=== PATIENT | female | born 1980 | race Caucasian/White ===

== ENCOUNTER 2023-11-02 15:14 | Emergency (ER) | payer BC, SELFPAY ==
[2023-11-02 15:16] VITALS: BP 135/89; PULSE 78; RESP 14; TEMP 35.7; O2SAT 98
[2023-11-02 15:23] VITALS: BMI 34.8
--- NOTE | 2023-11-02 15:30 | CT_ITS ---
EXAM: CT HEAD WITHOUT INTRAVENOUS CONTRAST CLINICAL INDICATION: dizziness TECHNIQUE: Multiple axial images were obtained of the head without intravenous contrast. This CT exam was performed using one or more of the following dose reduction techniques: automated exposure control, adjustment of the mA and/or kV according to patient size, and/or use of iterative reconstruction technique. COMPARISON: No relevant prior studies available. FINDINGS: BRAIN AND EXTRA-AXIAL SPACES: Normal. Normal brain attenuation. No intra- or extra-axial hemorrhage. No acute infarct. No intracranial mass or mass effect. There is preservation of the smith/white matter interface. Posterior fossa structures are unremarkable. Ventricles are appropriate for age. No hydrocephalus. Basal cisterns are patent. BONES/JOINTS: Normal calvarium. SINUSES: No acute sinusitis. MASTOID AIR CELLS: Normal. Clear. CT/Brain/Head without Contrast IMPRESSION: Normal CT brain without intravenous contrast. Electronically Signed: Gautam Villagran MD at 16:02 EST ,
--- NOTE | 2023-11-02 15:32 | EDS_ITS ---
HPI History of Present Illness Chief Complaint: Dizziness Informant: patient Onset/Context/Timing Onset: Today Context: Sudden Onset Timing: Continuous Current Severity: Mild Maximum Severity: Mild Narrative Narrative: 43-year-old female past medical history of Crohn's. States she had dizziness today starting around 1 PM. Room spinning. She has had prior history of dizziness never had it evaluated. Denies any recent fall or head trauma. No headaches. No recent illness such as nausea, vomiting or diarrhea. No fever. Denies any weakness to her upper or lower extremities. No numbness. When she does ambulate she is falling off to the right side. Prior similar symptoms: Yes Recent Illness/Hospitalization: No PFSH PFSH Medical History Acute Crohn's disease GERD (gastroesophageal reflux disease) Retinal arteriolar sclerosis Vertigo Home Medications hydrocodone-acetaminophen 5-325mg 5mg-325mg 1 tab PO Q6H PRN PRN Pain ##12 06/02/15 [Rx Last Taken Unknown] Omeprazole [Prilosec] 40 mg PO DAILY 07/25/15 [History Last Taken Unknown] dextroamphetamine-amphetamine 30 mg tablet (Adderall) 30 mg PO DAILY 07/25/15 [History Last Taken Unknown] duloxetine 30 mg capsule,delayed release 30 mg PO DAILY 07/25/15 [History Last Taken Unknown] etodolac 300 mg capsule 300 mg PO TIDCM ##30 07/25/15 [Rx Last Taken Unknown] penicillin V potassium 500 mg tablet 500 mg PO 4X/DAY #40 tabs 07/25/15 [Rx Last Taken Unknown] meclizine 25 mg chewable tablet (Antivert) 25 mg PO TID #14 tabs 11/02/23 [Rx Last Taken Unknown] Allergy/AdvReac Type Severity Reaction Status Date / Time latex AdvReac Unknown Verified 11/02/23 15:15 Social History Smoking Status: Current every day smoker tobacco type: cigarettes ROS ROS ED ROS Narrative Denies recent illness. Denies fever. Denies vomiting or diarrhea. Denies headaches. Review of Systems ROS Unobtainable: Denies due to encephalopathy Constitutional Constitutional ED: Denies chills or fever(s) Eyes Eyes: Denies blurry vision ENT ENT ED: Denies ear pain Cardiovascular Cardiovascular: Denies chest pain Respiratory/Chest Respiratory/Chest: Denies cough or dyspnea Gastrointestinal Gastrointestinal: Denies abdominal pain or constipation Genitourinary Genitourinary ED: Denies dysuria or hematuria Musculoskeletal Musculoskeletal: Denies arthralgias or back pain Integumentary Denies abscess or Abrasions Neurologic Neurologic: Denies headache(s), paresthesias or weakness Psychiatric Psychiatric: Denies anxiety or depression Endocrine Endocrinology: Denies cold intolerance Hematologic/Lymphatic Hematologic/Lymphatic: Reports none Allergic/Immunologic Allergic/Immunologic ED: Denies mouth swelling, tongue swelling or urticaria EXAM Physical Exam Narrative Exam Narrative: Well-appearing 43-year-old female. Vital signs stable afebrile. HEENT exam n ormal. Pupils round reactive light extra motions are intact. No facial droop. Normal speech. No signs of trauma. Neck nontender no lymphadenopathy. Lungs clear to auscultation bilaterally. Heart regular rhythm no murmur. Rate about 80. Chest wall and ribs nontender. Abdomen soft nontender. Moving all 4 extremities. 5 out of 5 quality engineer medical device strength. Dorsi plantarflexion intact. Neurologically she is awake and alert. Answering questions following commands. Normal speech. Again no facial droop. Fingertip to nose [id number] within normal limits. No drift. I did get the patient up and stand her and when she tried to ambulate she kept falling to the right side. Hallpike maneuvers in bed was positive. She became more dizzy. Const Vital Signs: 11/02/23 15:16 11/02/23 15:28 Temperature 96.3 F L Temperature Source Temporal Pulse Rate 78 Respiratory Rate 14 Respiratory Effort Normal Respiratory Pattern Normal Blood Pressure 135/89 H Blood Pressure Mean 104 Pulse Ox 98 Oxygen Delivery Method Room Air Positive well nourished and well developed; Negative for obese, cachectic, contractures or unkempt General Appearance ED: well developed and NAD; Negative for unkempt, cachectic, contractures, cyanotic, diaphoretic or pallor Nutritional Appearance: Negative for cachectic or obese HEENT Reports TM's clear and moist mucous membranes; Denies dry mucous membranes HEENT Narrative: TMs and canals normal bilaterally. No wax impaction. Negative for trauma or tenderness Tympanic Membrane ED: Yes TM's clear Mouth ED: No dry mucous membranes Mouth: No dry mucous membranes Eyes PERRL and EOMs intact bilaterally General Eye ED: Negative for pale conjunctiva or scleral icterus Neck no lymphadenopathy, supple and no JVD General: Negative for tenderness Lymph Lymphatic: Negative for other Chest Wall inspection of chest normal and palpation of chest normal Chest: Negative for other Resp normal respiratory effort and clear to auscultation bilaterally Effort and Inspection: Negative for retractions Auscultation: Negative for rales, rhonchi or wheezes Cardio regular rate, regular rhythm, S1 normal heart sound, S2 normal heart sound and no murmurs Palpation: Negative for palpable S3 or palpable S4 Rate: Negative for bradycardia or tachycardic Rhythm: Negative for abnormal rhythm GI normal to inspection, nondistended, normoactive bowel sounds, non-tender, non- distended and no masses; Negative for hepatosplenomegaly Inspection: abdominal distention Auscultation: normoactive bowel sounds Palpation: soft; Negative for tender, guarding, mass or rebound tenderness present Back/Spine no CVA tenderness General Back: Negative for CVA tenderness Cervical Spine: Negative for cervical spine tenderness Thoracic Spine / Upper Back: Negative for thoracic spinal tenderness or paraspinal muscle tenderness Lumbar Spine / Lower Back: Negative for lumbar spinal tenderness Extremity normal to inspection General Extremety ED: Negative for edema or tenderness General Extremity: Negative for edema Neuro oriented x3 and CN's II-XII intact bilaterally Sensorium / Orientation: alert; Negative for orientation impaired, lethargic or stuporous Sensory Exam: No sensory level loss detected Motor Exam: strength 5/5 throughout; Negative for general weakness or strength abnormal Psych mental status grossly normal Appearance: Negative for unkempt Attitude: No agitated Mood & Affect: Negative for depressed, anxious or tearful Skin no rashes or lesions noted and no wounds General Skin Exam: Negative for jaundice or pallor Lesions: No lesion noted Rashes: No rashes noted Trauma: Negative for abrasion Wounds: Negative for wounds noted MDM MDM MDM Narrative Medical decision making narrative: 43-year-old female may or may not have vertigo. Has positive Hallpike. Treated with meclizine. She did not want Ativan. Screening labs also being obtained in the CAT scan of her head. Repeat exam patient doing better at 4:45 PM. Her symptoms are improving with the Antivert. She will be discharged home with prescription for Antivert. Follow-up with her physician if not improving or return if worse. History & Record Review Discussion w/independent historian: Patient Additional record(s) reviewed:: No prior records Lab Data Attestation: I reviewed the patient's lab results. Lab results narrative: CBC shows normal white count of 7.6. H&H 12.5 and 36. Platelets 321. CAT scan of the brain without contrast shows no acute abnormality. Chemistries show potassium 3.4 gap 4 normal BUN of 8 creatinine 0.7. glucose 98. Labs: Laboratory Results - last 24 hr 11/02/23 15:40 WBC 7.6 RBC 4.20 Hgb 12.5 Hct 36.2 L MCV 86.2 MCH 29.8 MCHC 34.5 RDW Std Deviation 43.4 RDW Coeff of Ana 13.8 Plt Count 321 MPV 9.6 Immature Gran % (Auto) 0.400 Neut % (Auto) 47.5 Lymph % (Auto) 41.1 H Garrard % (Auto) 8.0 Eos % (Auto) 2.6 Baso % (Auto) 0.4 Absolute Neuts (auto) 3.6 Absolute Lymphs (auto) 3.13 Nucleated RBC % 0 Sodium 139 Potassium 3.4 L Chloride 112 H Carbon Dioxide 23.0 Anion Gap 4 L BUN 8 Creatinine 0.74 Estim Creat Clear Calc 108.91 Est GFR (MDRD) Af Amer 110 Est GFR (MDRD) Non-Af 91 BUN/Creatinine Ratio 10.7 Glucose 98 Calcium 9.3 Radiography Diagnostic Testing: Clinical Impression(s) from Imaging Studies Brain CT 11/02/23 15:30 IMPRESSION: Normal CT brain without intravenous contrast. Electronically Signed: Gautam Villagran MD at 16:02 EST , Discharge Plan Triage Chief Complaint: Dizziness ED Provider: Armin Ortiz Dx/Rx/DC Orders Clinical Impression: Vertigo Instructions: ED Vertigo, Unspecified Prescriptions: New meclizine [Antivert] 25 mg tablet,chewable 25 mg PO TID Qty: 14 0RF No Action hydrocodone-acetaminophen 1 TABLET tablet 1 tab PO Q6H PRN PRN (Reason: Pain) Qty: 12 0RF dextroamphetamine-amphetamine [Adderall] 30 MG tablet 30 mg PO DAILY duloxetine 30 MG capsule 30 mg PO DAILY Omeprazole [Prilosec] 40 MG capsule 40 mg PO DAILY etodolac 300 MG capsule 300 mg PO TIDCM Qty: 30 0RF Rx Instructions: with food penicillin V potassium 500 MG tablet 500 mg PO 4X/DAY Qty: 40 0RF Primary Care Provider: Care Physician,No Primary Referrals: Fernando Navarro MD [Med Staff - [employer]] - 3-5 Days if not improving Care Physician,No Primary [Primary Care Provider] - Activity Restrictions/Additional Instructions: Antivert as needed for your symptoms dizziness. Plenty of fluids and rest. Follow-up with a local primary care physician if not improving. Return if worse. Symptoms should progressively start getting better over the next several days and resolve if not get reevaluated. Your labs and CAT scan today were unremarkable. Disposition Disposition: Home, Self Care
--- OUTSIDE RECORDS SUMMARY | 2023-11-02 15:37 | XMS RPT_ITS | CCD ---
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 Name Role Phone DEMETRA ARCEO Unavailable Unavailable ROBER CHAVEZ Unavailable Unavailable HEINLE, CROCKER Unavailable Unavailable RUDI, PATTIE A Unavailable Unavailable Mariana Christiansen Unavailable Unavailable PROVIDER, UNKNOWN Unavailable Unavailable Mcclain, Pattie Unavailable Unavailable DERANEK, JAKE Unavailable Unavailable PROVIDER, UNKNOWN Unavailable Unavailable Mcclain, Pattie Unavailable Unavailable Mcclain DO, Pattie A Primary Care Provider Mcclain DO, Pattie A Primary Care Provider [phone] Mcclain DO, Pattie A Primary Care Provider [phone] Mcclain DO, Pattie A Primary Care Provider [phone] CLOUD, PATTIE A Primary Care Unavailable WORTHAMS, DAYANA Attending Unavailable CLOUD, PATTIE A Primary Care Unavailable WORTHAMS, DAYANA Attending Unavailable CLOUD, PATTIE A Primary Care Unavailable WORTHAMS, DAYANA Attending Unavailable WORTHAMS, DAYANA Attending Unavailable CLOUD, PATTIE A Primary Care Unavailable WORTHAMS, DAYANA Attending Unavailable NATALIE, SIMONA Referring Unavailable CLOUD, PATTIE A Primary Care Unavailable GISELLA CARROLL Referring Unavailable NATALIE, SIMONA Attending Unavailable CLOUD, PATTIE A Primary Care Unavailable CLOUD, PATTIE A Primary Care Unavailable CLOUD, PATTIE A Attending Unavailable CLOUD, PATTIE A Primary Care Unavailable CLOUD, PATTIE A Primary Care Unavailable CLOUD, PATTIE A Attending Unavailable CLOUD, PATTIE A Primary Care Unavailable CLOUD, PATTIE A Attending Unavailable CLOUD, PATTIE A Referring Unavailable CLOUD, PATTIE A Primary Care Unavailable CLOUD, PATTIE A Primary Care Unavailable CLOUD, PATTIE A Attending Unavailable CLOUD, PATTIE A Primary Care Unavailable CLOUD, PATTIE A Attending Unavailable CLOUD, PATTIE Referring Unavailable CLOUD, PATTIE Primary Care Unavailable CLOUD, PATTIE Referring Unavailable CLOUD, PATTIE Primary Care Unavailable Allergies Allergy Classification Reported Allergen(s) Allergy Type Date of Onset Reaction(s) Facility (20 sources) Latex; Translations: [LATEX] Drug Intolerance 0 Intolerance [facility] Medications Current Medications Medication Drug Class(es) Dates Sig (Normalized) Sig (Original) amphetamine aspartate 7.5 mg / amphetamine sulfate 7.5 mg / dextroamphetamine saccharate 7.5 mg / dextroamphetamine sulfate 7.5 mg oral tablet (20 sources) Central Nervous System Stimulant Start: 10-22-2022 End: 12-21-2022 take 1 tablet by mouth twice daily Amphetamine-Dextro amphetamine (ADDERALL) 30 mg tablet Indications: Attention deficit disorder, unspecified hyperactivity presence Take 1 tablet by mouth twice daily for 30 days. Do not start before November 21, 2022. 60 tablet 0 11/21/2022 12/21/2022 Active Completed/Discontinued Medications Medication Drug Class(es) Dates Sig (Normalized) Sig (Original) [id number] 200 actuat albuterol 0.09 mg/actuat metered dose inhaler (20 sources) beta2-Adrenergic Agonist Start: 03-07-2018 take 2 puff(s) by inhalation every six hours as needed albuterol HFA (PROAIR HFA) 90 mcg/actuation inhaler Inhale 2 Puffs as instructed every 6 hours as needed. 3 Inhaler 3 03/07/2018 Active Problems Active Problems Problem Classification Problem Date Documented Date Episodic/Chronic Anal and rectal conditions (2 sources) Anorectal pain; Translations: [Other specified diseases of anus and rectum] Onset: 07-19-2023 07-19-2023 Episodic Anxiety disorders (20 sources) Mixed anxiety and depressive disorder; Translations: [Other specified anxiety disorders] Onset: 12-22-2021 Chronic Attention-deficit, conduct, and disruptive behavior disorders (4 sources) Attention deficit hyperactivity disorder; Translations: [Attention-deficit hyperactivity disorder, unspecified type] Chronic Disorders usually diagnosed in infancy, childhood, or adolescence (20 sources) Attention deficit hyperactivity disorder, predominantly inattentive type; Translations: [Other specified behavioral and emotional disorders with onset usually occurring in childhood and adolescence] Onset: 06-10-2010 06-10-2010 Chronic Esophageal disorders (20 sources) Gastroesophageal reflux disease; Translations: [Gastro-esophageal reflux disease without esophagitis] Onset: 01-23-2012 01-23-2012 Chronic External Injury - Fall (2 sources) Fall on same level from slipping, tripping and stumbling without subsequent striking against object, initial encounter; Translations: [Fall same lev from slip/trip w/o strike against object, init] Onset: 03-20-2017 Genitourinary symptoms and ill-defined conditions (1 source) Delay when starting to pass urine; Translations: [Hesitancy of micturition] Episodic Immunizations and screening for infectious disease (3 sources) Patient encounter status; Translations: [Encounter for immunization] Episodic Inflammation; infection of eye (except that caused by tuberculosis or sexually transmitteddisease) (1 source) Allergic conjunctivitis of bilateral eyes; Translations: [Acute atopic conjunctivitis, bilateral] Episodic Mood disorders (2 sources) Recurrent major depressive episodes, moderate ; Translations: [Major depressive disorder, recurrent, moderate] Chronic Other connective tissue disease (1 source) Plantar fasciitis; Translations: [Plantar fascial fibromatosis] Episodic Other female genital disorders (1 source) Premenstrual tension syndrome; Translations: [Premenstrual tension syndrome] Chronic Other inflammatory condition of skin (1 source) Pruritus, unspecified; Translations: [Unspecified pruritic disorder] 05-30-2023 Episodic Other nutritional; endocrine; and metabolic disorders (1 source) Obese class II; Translations: [Obesity, unspecified] 08-02-2023 Chronic Other nutritional; endocrine; and metabolic disorders (1 source) Obesity, unspecified; Translations: [Obesity, Class II, BMI 35-39.9] Onset: 08-05-2023 Chronic Other nutritional; endocrine; and metabolic disorders (2 sources) Polyphagia; Translations: [Polyphagia] Episodic Other screening for suspected conditions (not mental disorders or infectious disease) (3 sources) Encounter for screening mammogram for malignant neoplasm of breast; Translations: [Encounter for screening for diabetes mellitus] Onset: 11-08-2022 Episodic Other skin disorders (1 source) Inflamed seborrheic keratosis; Translations: [Inflamed seborrheic keratosis] 05-30-2023 Episodic Other skin disorders (1 source) Seborrheic keratosis; Translations: [Other seborrheic keratosis] 05-30-2023 Episodic Other skin disorders (1 source) Multiple skin tags; Translations: [Other hypertrophic disorders of the skin] 05-30-2023 Episodic Other upper respiratory disease (2 sources) Seasonal allergic rhinitis; Translations: [Other seasonal allergic rhinitis] Chronic Regional enteritis and ulcerative colitis (20 sources) Crohn's disease; Translations: [Crohn's disease, unspecified, without complications] Onset: 06-10-2010 06-10-2010 Chronic Residual codes; unclassified (4 sources) Postoperative state; Translations: [Other specified postprocedural states] 07-01-2023 Episodic Residual codes; unclassified (1 source) Other specified postprocedural states; Translations: [Postoperative state] Onset: 07-19-2023 Episodic Retinal detachments; defects; vascular occlusion; and retinopathy (1 source) Schisis of right retina; Translations: [Unspecified retinoschisis, right eye] Chronic Substance-related disorders (2 sources) Nicotine dependence, unspecified, uncomplicated; Translations: [Nicotine dependence, unspecified, uncomplicated] Onset: 04-14-2017 Chronic Unclassified (1 source) OPENED IN ERROR 07-11-2023 Viral infection (8 sources) Anal warts; Translations: [Anogenital (venereal) warts] Onset: 07-01-2023 04-05-2023 Episodic Past or Other Problems Problem Classification Problem Date Documented Da te Episodic/Chronic Allergic reactions (2 sources) Latex allergy status; Translations: [Latex allergy status] Onset: 04-14-2017 Episodic Contraceptive and procreative management (2 sources) Tubal ligation status; Translations: [Tubal ligation status] Onset: 04-14-2017 Episodic Mood disorders (1 source) Emotional lability; Translations: [Mood swings] Onset: 01-25-2023 Episodic Other connective tissue disease (2 sources) Other muscle spasm; Translations: [Other muscle spasm] Onset: 04-14-2017 Episodic Other non-traumatic joint disorders (4 sources) Pain in unspecified shoulder; Translations: [Pain in left shoulder] Onset: 04-14-2017 Episodic Residual codes; unclassified (20 sources) Tobacco use and exposure - finding; Translations: [Tobacco use] Onset: 04-03-2012 04-03-2012 Episodic Residual codes; unclassified (1 source) Flushing; Translations: [Hot flashes] Onset: 01-25-2023 Episodic Spondylosis; intervertebral disc disorders; other back problems (20 sources) Dorsalgia, unspecified; Translations: [Backache] Onset: 06-26-2011 06-26-2011 Episodic Sprains and strains (2 sources) Strain of muscle, fascia and tendon at neck level, initial encounter; Translations: [Strain of muscle, fascia and tendon at neck level, init] Onset: 03-20-2017 Episodic Superficial injury; contusion (4 sources) Contusion of left upper arm, initial encounter; Translations: [Contusion of left shoulder, initial encounter] Onset: 03-20-2017 Episodic Unclassified (2 sources) Acquired absence of other organs; Translations: [Acquired absence of other organs] Onset: 04-14-2017 Episodic Results Test Name Value Interpretation Reference Range Facil ity Vital Signs Date Time Vital Sign Value Performing Clinician Eulalia metzger 07-01-2023 09:09-0400 Body height 165.1 cm Dayana Chan APRN.CNP Work Phone: [facility] 07-01-2023 09:09-0400 Body temperature 97.59 [degF] Dayana Chan APRN.CNP Work Phone: [facility] 07-01-2023 09:09-0400 Body weight 108.41 kg Dayana Chan APRN.CNP Work Phone: [facility] 07-01-2023 09:09-0400 Diastolic blood pressure 84 mm[Hg] Dayana Chan APRN.CALL CENTER RN Work Phone: [facility] 07-01-2023 09:09-0400 Heart rate 81 /min Dayana Chan APRN.CALL CENTER RN Work Phone: [facility] 07-01-2023 09:09-0400 Respiratory rate 18 /min Dayana Chan APRN.CALL CENTER RN Work Phone: [facility] 07-01-2023 09:09-0400 SaO2% (BldA) [Mass fraction] 99 % Dayana Chan APRN.CNP Work Phone: [facility] 07-01-2023 09:09-0400 Systolic blood pressure 151 mm[Hg] Dayana Chan APRN.CALL CENTER RN Work Phone: [facility] 01-31-2023 10:03-0400 Body weight 104.55 kg Pattie Mcclain DO Work Phone: [facility] 01-31-2023 10:03-0400 Diastolic blood pressure 80 mm[Hg] Pattie Mcclain DO Work Phone: [facility] 01-31-2023 10:03-0400 Heart rate 74 /min Pattie Mcclain DO Work Phone: [facility] 01-31-2023 10:03-0400 Respiratory rate 16 /min Pattie Mcclain DO Work Phone: [facility] 01-31-2023 10:03-0400 Systolic blood pressure 126 mm[Hg] Pattie Mcclain DO Work Phone: [facility] 08-21-2022 08:38-0500 Body weight 101.47 kg Pattie Mcclain DO Work Phone: [facility] 08-21-2022 08:38-0500 Diastolic blood pressure 88 mm[Hg] Pattie Mcclain DO Work Phone: [facility] 08-21-2022 08:38-0500 Heart rate 62 /min Pattie Mcclain DO Work Phone: [facility] 08-21-2022 08:38-0500 Respiratory rate 16 /min Pattie Mcclain DO Work Phone: [facility] 08-21-2022 08:38-0500 Systolic blood pressure 131 mm[Hg] Pattie Mcclain DO Work Phone: [facility] Encounters Encounter Date Encounter Type Care Provider Facility Start: 10-29-2023 ambulatory Pattie A Mcclain D O Work Phone: [facility] Procedures Date Procedure Procedure Detail Performing Clinician Start: 02-21-2023 Computerized ophthal vanessa imaging retina Justen Summers MD Work Phone: Start: 02-21-2023 End: 02-21-2023 Computerized ophthalmic imaging retina Justen Summers MD Work Phone: Start: 11-08-2022 Mammography Mammograph y Coordinator Start: 08-21-2022 INFLUENZA VACCINE QUADRIVALENT 6 MO - 64 YRS IM Pattie A Mcclain DO Work Phone: Start: 06-27-2021 Mammography Orville GONZALEZ-Denise Work Phone: Start: 12-30-2020 Adult depression scr eening assessment Orville GONZALEZ-C Work Phone: Plan of Treatment Date Care Activity Detail Author Start: 03-24-2029 Urine microalbumin profile [facility] Start: 03-24-2024 HPV TESTING HPV TESTING [facility] Start: 03-24-2024 PAP TESTING PAP TESTING [facility] Start: 03-24-2024 Screening for malign ant neoplasm of cervix [facility] Start: 11-09-2023 Mammography [facility] Start: 11-09-2023 Screening for malign ant neoplasm of breast Mammogram Screening [facility] Start: 08-21-2023 COVID-19 VACCINE (3 - Booster for Pfizer series) COVID-19 VACCINE (3 - Booster for Pfizer series) [facility] Immunizations Immunization Date Immunization Notes Care Provider Fa cili 07-02-2023 Human Papillomavirus 9-valent vaccine Pattie Mcclain DO Work Phone: [facility] Work Phone: 07-02-2023 influenza, injectabl e, quadrivalent, preservative free Pattie Mcclain DO Work Phone: [facility] Work Phone: 08-21-2022 influenza, injectabl e, quadrivalent, contains preservative Pattie Mcclain DO Work Phone: [facility] 08-21-2022 influenza virus vacc ine, unspecified formulation Simona Espinosa MD Work Phone: [facility] 08-02-2021 influenza, injectabl e, quadrivalent, contains preservative Orville GONZALEZ-Denise Work Phone: [facility] 01-12-2021 COVID-19 vaccine, ag e 12+ yr ([employer] - PURPLE TOP) Orville GONZALEZ-Denise Work Phone: [facility] 12-15-2020 COVID-19 vaccine, ag e 12+ yr ([employer] - PURPLE TOP) Coulton Delphine PA-C Work Phone: [facility] 06-09-2020 influenza, injectabl e, quadrivalent, contains preservative Coulton Delphine PA-C Work Phone: [facility] 08-15-2019 influenza, injectabl e, quadrivalent, contains preservative Coulton Delphine PA-C Work Phone: [facility] 03-24-2019 pneumococcal polysaccharide vaccine, 23 valent Coulton Delphine PA-C Work Phone: [facility] 03-24-2019 tetanus toxoid, redu polly diphtheria toxoid, and acellular pertussis vaccine, adsorbed Coulton Delphine PA-C Work Phone: [facility] 07-01-2018 influenza, injectabl e, quadrivalent, contains preservative Coulton Delphine PA-C Work Phone: [facility] 09-20-2017 influenza, injectabl e, quadrivalent, contains preservative Coulton Delphine PA-C Work Phone: [facility] 06-19-2016 influenza, injectabl e, quadrivalent, contains preservative Coulton Delphine PA-C Work Phone: [facility] 07-22-2010 influenza virus vacc ine, unspecified formulation Coulton Delphine PA-C Work Phone: [facility] Payers Date Payer Category Payer Unknown [id number] 2021 Unknown MMO MMO [employer] [id number] 2021-Present [phone] [address] [place] [address] O [id number] 2021 Unknown [id number] 2020 Unknown 2017 Self-pay Social History Date Type Detail Facility Start: 10-18-2018 End: 08-21-2022 Tobacco smoking status NHIS Smokes tobacco daily [facility] History of tobacco use Cigarette Smoker C [facility] Start: 08-02-2021 End: 07-01-2023 Alcohol intake Ex-drinker (finding) [facility] Start: 06-09-2020 End: 08-21-2022 History SDOH Alcohol Frequency 1 [facility] Start: 12-02-2020 History SDOH Alcohol Comment <1 time per year [facility] Start: 06-09-2020 End: 08-21-2022 History SDOH Social Connections Phone 3 [facility] Start: 06-09-2020 End: 08-21-2022 History SDOH Social Connections Membership 2 [facility] Start: 06-09-2020 History SDOH Physica l Activity DPW 7 [facility] Start: 06-09-2020 Education 21 [facility] Start: 1980 Sex Assigned At Female [facility] Start: 10-18-2018 End: 01-31-2023 Cigarettes smoked current (pack per day) - Reported 0.5 [facility] Start: 10-18-2018 End: 08-21-2022 Tobacco use and exposure Smokeless tobacco non-user [facility] Start: 08-21-2022 History SDOH Alcohol Std Drinks 0 [facility] Start: 08-21-2022 History SDOH Financial 4 [facility] Start: 08-21-2022 End: 01-31-2023 Social connection and isolation panel [facility] Do you belong to any clubs or organizations such as yazidi groups, unions, fraternal or athletic groups, or school groups? No [facility] Are you now , , , , never or living with a partner? [facility] How often to you hav e a drink containing alcohol? Never [facility] How many standard dr inks containing alcohol do you have on a typical day? Patient does not drink [facility] How hard is it for y ou to pay for the very basics like food, housing, medical care, and heating Not very hard [facility] Do you feel stress - tense, restless, nervous, or anxious, or unable to sleep at night because your mind is troubled all the time - these days [OSQ] To some extent [facility] (I/We) worried wheth er (my/our) food would run out before (I/we) got money to buy more. Never true [facility] Start: 05-12-2020 Gender identity Identifies as female gender (finding) [facility] Start: 05-12-2020 Sexual orientation Heterosexual (gideon calvert) [facility] Clinical Notes 06-19-2016 to 10-29-2023 Telephone Encounter - Pattie Hayes DO - 10/29/2023 4:41 PM ESTTelephone Encounter - Lizbeth Thompson Ma - 10/29/2023 10:27 AM ESTTelephone Encounter - Pattie Hayes DO - 10/23/2023 4:20 PM EST Note Date & Type Note Facility 10-29-2023 Miscellaneous Notes The following approved medication requests have been transmitted electronically. Requested Prescriptions Signed Prescriptions Disp Refills tirzepatide (MOUNJARO) 7.5 mg/0.5 mL pen injector 2 mL 0 Sig: Inject 7.5 mg subcutaneously one time a week. 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 Called [facility] Spoke with pharmacist RX is stock Please resend RX one more time documented in this encounter [facility] 10-23-2023 Miscellaneous Notes The following approved medication requests have been transmitted electronically. Requested Prescriptions Signed Prescriptions Disp Refills tirzepatide (MOUNJARO) 10 mg/0.5 mL pen injector 2 mL 0 Sig: Inject 10 mg subcutaneously one time a week. Authorizing Provider: PATTIE HAYES DO 10:06 AM Called patient. Informed of below message. Started taking stool softener. States has some indigestion but not always. Was waking up in middle of night with indigestion, but this has resolved. Only has indigestion right when she wakes up, but then she is good throughout the day. States having regular bowel movements, and that the stool softener helped her symptoms. Informed patient Dr. Hayes is on vacation until after the weekend, that the message would be sent to her and the covering team, but might not get dealt with until after the weekend. Ronnie Burrell RN Please call patient. I am hesitant to increase dosage with her increase in GERD symptoms. Pattie Hayes DO Patient has been identified by name and date of : Yes Patient phones requesting refills as follows: Requested Prescriptions Pending Prescriptions Disp Refills tirzepatide (MOUNJARO) 10 mg/0.5 mL pen injector 2 mL 1 Sig: Inject 10 mg subcutaneously one time a week. Last appointment: 08/02/2023 Next scheduled appointment: Appointments for Next 60 Days Date Time Provider Location Dept Phone 11/19/2023 2:20 PM PATTIE HAYES [facility] [phone] RX INSTRUCTIONS: Respond to pharmacy only and close encounter Lizbeth Thompson Ma documented in this encounter [facility] 08-02-2023 Note HNO ID: [id number] Author: Pattie Hayes DO Service: ? Author Type: Physician Type: Progress Notes Filed: 08/02/2023 3:19 PM Note Text: This visit was conducted as a virtual visit. Pt is currently at work. I have communicated my name and active licensure. The patient's identity and physical location were verified at the time of this visit. 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 CC: Weight HPI: 43 year old female presents for weight I last saw patient in April Feels omeprazole isn't working Taking omeprazole 40 mg BID Having indigestion Struggling with eating in evening Wondering about going on mounjaro On lisdexamfetamine for binge eating and ADHD Insurance made her take generic instead of name brand Medication still helping with focus Doesn't feel it is helping with appetite suppression as much Eats dinner around 5 pm Snacking right before bed States she can't get it off her mind Has gained a lot of weight over past few years Last CMP was 12/2022 Pt states insurance will cover drug if she has obesity Doesn't need to have diabetes Mom is on mounjaro and doing well No history of pancreatitis No family history of thyroid cancer or endocrine cancers Objective: General appearance:Obese, well appearing, alert, in no acute distress, and well-hydrated, well nourished ASSESSMENT/PLAN: 1. Obesity, Class II, BMI 35-39.9 - ICD9: 278.00, ICD10: E66.9 (primary diagnosis) - discussed mounjaro. Pt will message in 3 weeks with how tolerating and will increase dose if tolerating - TIRZEPATIDE 2.5 MG/0.5 ML SUBCUTANEOUS PEN INJECTOR - COMP METABOLIC PANEL - HGB A1C - LIPID PANEL BASIC 2. Screening for diabetes mellitus - ICD9: V77.1, ICD10: Z13.1 - COMP METABOLIC PANEL - HGB A1C 3. Screening cholesterol level - ICD9: V77.91, ICD10: Z13.220 - LIPID PANEL BASIC 4. Gastroesophageal reflux disease, unspecified whether esophagitis present - ICD9: 530.81, ICD10: K21.9 - on omeprazole - pt aware weight loss would be helpful Follow up in 3 months Pattie Hayes DO [facility] 08-02-2023 History of Presen t illness Narrative This visit was conducted as a virtual visit. Pt is currently at work. I have communicated my name and active licensure. The patient's identity and physical location were verified at the time of this visit. 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 CC: Weight HPI: 43 year old female presents for weight I last saw patient in April Feels omeprazole isn't working Taking omeprazole 40 mg BID Having indigestion Struggling with eating in evening Wondering about going on mounjaro On lisdexamfetamine for binge eating and ADHD Insurance made her take generic instead of name brand Medication still helping with focus Doesn't feel it is helping with appetite suppression as much Eats dinner around 5 pm Snacking right before bed States she can't get it off her mind Has gained a lot of weight over past few years Last CMP was 12/2022 Pt states insurance will cover drug if she has obesity Doesn't need to have diabetes Mom is on mounjaro and doing well No history of pancreatitis No family history of thyroid cancer or endocrine cancers Objective: General appearance:Obese, well appearing, alert, in no acute distress, and well-hydrated, well nourished ASSESSMENT/PLAN: 1. Obesity, Class II, BMI 35-39.9 - ICD9: 278.00, ICD10: E66.9 (primary diagnosis) - discussed mounjaro. Pt will message in 3 weeks with how tolerating and will increase dose if tolerating - TIRZEPATIDE 2.5 MG/0.5 ML SUBCUTANEOUS PEN INJECTOR - COMP METABOLIC PANEL - HGB A1C - LIPID PANEL BASIC 2. Screening for diabetes mellitus - ICD9: V77.1, ICD10: Z13.1 - COMP METABOLIC PANEL - HGB A1C 3. Screening cholesterol level - ICD9: V77.91, ICD10: Z13.220 - LIPID PANEL BASIC 4. Gastroesophageal reflux disease, unspecified whether esophagitis present - ICD9: 530.81, ICD10: K21.9 - on omeprazole - pt aware weight loss would be helpful Follow up in 3 months Pattie Hayes DO documented in this encounter [facility] 07-29-2023 Miscellaneous Notes Patient has been identified by name and date of : Yes Patient phones requesting refills as follows: Requested Prescriptions Pending Prescriptions Disp Refills FLUoxetine (PROZAC) 40 mg capsule 180 capsule 3 Sig: Take 2 capsules by mouth once daily. Last appointment: 01/31/2023 Next scheduled appointment: NONE RX INSTRUCTIONS: Respond to pharmacy only and close encounter Chelsie Zambrano LPN documented in this encounter [facility] 07-19-2023 Note HNO ID: [id number] Author: Dayana Chan APRN.CNP Service: ? Author Type: Nurse Practitioner Type: Progress Notes Filed: 07/19/2023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 necessary, but may be used for protection. Change it daily. Do not leave a soiled or wet band aid on the wound. 4. Apply vaseline daily until scab comes off. 5. Aspirin, Tylenol, or Ibuprophen may be used for pain. 6. As soon as scab has formed, you do not need to cleanse area and you may leave the bandage off. The scab will generally fall off in 3-4 weeks on the face, but may take longer on the other areas of the body. 7. Call if you have any problems or questions or if these areas recur or do not go away documented in this encounter [facility] 05-13-2023 Miscellaneous Notes 4. Anal warts - ICD9: 078.11, ICD10: A63.0 - IMIQUIMOD 5 % TOPICAL CREAM PACKET Order pending documented in this encounter [facility] 04-08-2023 Miscellaneous Notes Addressed in refill encounter Pattie Hayes DO Called [facility] Spoke with the pharmacist Pharmacy needs clarification on sig for :imiquimod (ALDARA) 5 % cream Is the patient suppose to use once daily or 3 times per week documented in this encounter [facility] 04-08-2023 Miscellaneous Notes The following approved medication requests have been transmitted electronically. Requested Prescriptions Signed Prescriptions Disp Refills imiquimod (ALDARA) 5 % cream 72 Each 0 Sig: Apply a thin layer 3 times per week (on alternate days) prior to bedtime; leave on skin for 6 to 10 hours, then remove with mild soap and water. Continue until there is total clearance of the genital/perianal warts or for a maximum duration of therapy of 16 weeks. Authorizing Provider: PATTIE HAYES DO Patient has been identified by name and date of : Yes Patient phones requesting refills as follows: Requested Prescriptions Pending Prescriptions Disp Refills imiquimod (ALDARA) 5 % cream [Pharmacy Med Name: IMIQUIMOD 5% CREAM PACKET] 0 Sig: PLEASE SEE ATTACHED FOR DETAILED DIRECTIONS Last appointment: 01/31/2023 Next scheduled appointment: Appointments for Next 60 Days Date Time Provider Location Dept Phone 04/05/2023 8:00 AM PATTIE HAYES [facility] [phone] RX INSTRUCTIONS: Respond to pharmacy Betsy Luna RN documented in this encounter [facility] 04-05-2023 Miscellaneous Notes Behavioral Health Social Work Progress Note Patient identified for [facility] from: PCP Reason for referral: Resources Behavioral Health Resources: Psychology - talk therapy [facility] encounter type: Telephone Encounter, [employer] Message Attempts to Outreach: 1 attempt Referral made: Psychology - Internal, Psychology - External Psychology-Internal referral type: Therapy Psychology-External referral type: Therapy Reason for external referral: Patient choice, Wait times at [facility] too long Final Disposition: Resources given Patient Discharged?: Yes Patient reported that caregiver was able to meet their needs today?: Yes SW placed a phone call to patient at the request of the PCP. Pt reported she is looking for talk therapy referrals, and felt virtual was a good option. SW will provide the following referrals via [employer]: [facility] Counseling Central Scheduling Call Center [phone] [address] [facility] [address] [facility] [address] [facility] [id number] Also [place], [place], [place] and [place] locations [address] [facility] [id number] [facility] [address] [address] [place], [place] [address] VONDA Cabrera LISW-S April 05, 2023 documented in this encounter [facility] 04-05-2023 Note HNO ID: [id number] Author: Pattie Hayes, DO Service: ? Author Type: Physician Type: Progress Notes Filed: 04/05/2023 8:16 AM Note Text: This visit was conducted as a virtual visit. Pt is currently at home. I have communicated my name and active licensure. The patient's identity and physical location were verified at the time of this visit. 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 CC: Follow up HPI: 43 year old female presents for follow up I saw patient on 01/31 Increased bupropion from 300 to 450 mg at that time She is also on fluoxetine 80 mg and vyvanse 50 mg PDMP report reviewed Doing a lot better Boss commented on improved Still worrying No panic attacks Energy improved and not napping during day Struggling with eating at night Waking up during night and will eat Uncertain what causes her to wake as hot flashes resolved Wondering if she can try higher dose of vyvanse with next refill BP has been ok Also would like to try aldara cream again States lesions got smaller when she used cream but didn't resolve 100% Saw podiatry for planatar fascitis Got injections and got inserts Pain improving Objective: General appearance:well appearing, alert, in no acute distress, and well-hydrated, well nourished Psych: Posture and motor behavior: normal posture and motor behavior Dress, grooming, personal hygiene: normal dress and grooming Facial expression: smiling and good eye contact Speech: normal speech Mood: cheerful Coherency and relevance of thought: normal thought processes Memory: normal memory ASSESSMENT/PLAN: 1. Anxiety with depression - ICD9: 300.4, ICD10: F41.8 (primary diagnosis) - mood improving but still worrying - continue medications - interested in counseling - CONSULT TO [facility] 2. Attention deficit hyperactivity disorder (ADHD), unspecified ADHD type - ICD9: 314.01, ICD10: F90.9 3. Binge eating - ICD9: 783.6, ICD10: R63.2 - continue vyvanse - will try higher dose of vyvanse with next refill 4. Anal warts - ICD9: 078.11, ICD10: A63.0 - IMIQUIMOD 5 % TOPICAL CREAM PACKET Follow up in 6 months, sooner if needed Patite Hayes, [facility] 04-05-2023 History of Presen t illness Narrative This visit was conducted as a virtual visit. Pt is currently at home. I have communicated my name and active licensure. The patient's identity and physical location were verified at the time of this visit. 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 CC: Follow up HPI: 43 year old female presents for follow up I saw patient on 01/31 Increased bupropion from 300 to 450 mg at that time She is also on fluoxetine 80 mg and vyvanse 50 mg PDMP report reviewed Doing a lot better Boss commented on improved Still worrying No panic attacks Energy improved and not napping during day Struggling with eating at night Waking up during night and will eat Uncertain what causes her to wake as hot flashes resolved Wondering if she can try higher dose of vyvanse with next refill BP has been ok Also would like to try aldara cream again States lesions got smaller when she used cream but didn't resolve 100% Saw podiatry for planatar fascitis Got injections and got inserts Pain improving Objective: General appearance:well appearing, alert, in no acute distress, and well-hydrated, well nourished Psych: Posture and motor behavior: normal posture and motor behavior Dress, grooming, personal hygiene: normal dress and grooming Facial expression: smiling and good eye contact Speech: normal speech Mood: cheerful Coherency and relevance of thought: normal thought processes Memory: normal memory ASSESSMENT/PLAN: 1. Anxiety with depression - ICD9: 300.4, ICD10: F41.8 (primary diagnosis) - mood improving but still worrying - continue medications - interested in counseling - CONSULT TO [facility] 2. Attention deficit hyperactivity disorder (ADHD), unspecified ADHD type - ICD9: 314.01, ICD10: F90.9 3. Binge eating - ICD9: 783.6, ICD10: R63.2 - continue vyvanse - will try higher dose of vyvanse with next refill 4. Anal warts - ICD9: 078.11, ICD10: A63.0 - IMIQUIMOD 5 % TOPICAL CREAM PACKET Follow up in 6 months, sooner if needed Pattie Hayes DO documented in this encounter [facility] 04-01-2023 Miscellaneous Notes The following approved medication requests have been transmitted electronically. Requested Prescriptions Signed Prescriptions Disp Refills buPROPion XL (WELLBUTRIN XL) 300 mg 24 hr tablet 90 tablet 1 Sig: TAKE 1 TABLET BY MOUTH EVERY DAY Authorizing Provider: GISELLA CARROLL APRN.CNP Patient has been identified by name and date of : Yes Patient phones requesting refills as follows: Requested Prescriptions Pending Prescriptions Disp Refills buPROPion XL (WELLBUTRIN XL) 300 mg 24 hr tablet [Pharmacy Med Name: BUPROPION HCL XL 300 MG TABLET] 90 tablet 1 Sig: TAKE 1 TABLET BY MOUTH EVERY DAY Last appointment: 01/27/2021 Next scheduled appointment: 04/05/2023 Appointments for Next 60 Days Date Time Provider Location Dept Phone 04/05/2023 8:00 AM PATTIE HAYES [facility] [place] TAYLOR [phone] RX INSTRUCTIONS: OK to close encounter Lidya Wood MA documented in this encounter [facility] 03-19-2023 Miscellaneous Notes PDMP report reviewed The following approved medication requests have been transmitted electronically. Requested Prescriptions Signed Prescriptions Disp Refills lisdexamfetamine (VYVANSE) 50 mg capsule 90 capsule 0 Sig: Take 1 capsule by mouth once daily for 90 days. Do not start before March 21, 2023. Authorizing Provider: PATTIE HAYES DO Patient has been identified by name and date of : Yes Requested Prescriptions Pending Prescriptions Disp Refills lisdexamfetamine (VYVANSE) 50 mg capsule 90 capsule 0 Sig: Take 1 capsule by mouth once daily for 90 days. Last appointment: 01/31/2023 Next scheduled appointment: 04/05/2023 Appointments for Next 60 Days Date Time Provider Location Dept Phone 03/28/2023 10:00 AM [facility] [phone] 04/05/2023 8:00 AM PATTIE HAYES [facility] [phone] RX INSTRUCTIONS: Respond to pharmacy only and close encounter Chelsie Zambrano LPN documented in this encounter [facility] 03-18-2023 Miscellaneous Notes The following approved medication requests have been transmitted electronically. Requested Prescriptions Signed Prescriptions Disp Refills fluticasone (FLONASE) 50 mcg/actuation nasal spray 3 Each 2 Sig: Use 1 [place] in each nostril once daily. Authorizing Provider: ORVILLE BAUTISTA PA-C Patient has been identified by name and date of : Yes Patient phones requesting refills as follows: Requested Prescriptions Pending Prescriptions Disp Refills fluticasone (FLONASE) 50 mcg/actuation nasal spray 3 Each 2 Sig: Use 1 [place] in each nostril once daily. Last appointment: 01/31/2023 Next scheduled appointment: Appointments for Next 60 Days Date Time Provider Location Dept Phone 03/28/2023 10:00 AM [facility] ANISHA Saravia [phone] 04/05/2023 8:00 AM PATTIE HAYES [facility] [place] [phone] RX INSTRUCTIONS: Respond to pharmacy only and close encounter Lizbeth Thompson Ma documented in this encounter [facility] 02-21-2023 Note HNO ID: [id number] Author: Justen Summers MD Service: ? Author Type: Fellow Type: Progress Notes Filed: 02/21/2023 4:08 PM Note Text: 42 year old female new patient referred by [facility] for suspected retinal detachment OD. Lives in [place], [place] (~1 hr away). # Retinoschisis OD - Went to [facility] today for first time in years for routine exam - Noted to have retinal detachment . 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 I have seen and examined this patient. I have discussed the case and the management of this patient's care with the Resident/Fellow, if applicable. I also have reviewed and agree with the assessment and plan as stated above and agree with all of its relevant components. Justen Summers MD February 21, 2023 4:08 PM [facility] 02-21-2023 History of Presen t illness Narrative 42 year old female new patient referred by [facility] for suspected retinal detachment OD. Lives in [place], [place] (~1 hr away). # Retinoschisis OD - Went to [facility] today for first time in years for routine exam - Noted to have retinal detachment . 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 I have seen and examined this patient. I have discussed the case and the management of this patient's care with the Resident/Fellow, if applicable. I also have reviewed and agree with the assessment and plan as stated above and agree with all of its relevant components. Justen Summers MD February 21, 2023 4:08 PM documented in this encounter [facility] 01-31-2023 Note HNO ID: [id number] Author: Pattie Hayes, DO Service: ? Author Type: Physician Type: Progress Notes Filed: 01/31/2023 11:14 AM Note Text: CC: Irregular menses and hot flashes HPI: 42 year old female presents with for irregular menses and hot flashes Past two months menses have been supervisor type photography than normal Only had spotting for about 1.5 days Describes bleeding as brown in color Menses three months ago was normal States she feels warm all the time Will have episodes in which she starts sweating profusely Symptoms not worse at night Decreased sex drive Feeling more irritable as well Switched from adderall to vyvanse in December Feeling better on vyvanse is helping with motivation more Also on bupropion and fluoxetine They irritability is a large problem Got written up at work States she is emotional and crying Symptoms worse the week prior to menses 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 but 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 with co-workers Likes job She is still smoking Has decreased amount though Having pain in heels Has tried different shoes and inserts Pain worse after prolonged sitting Rarely walking barefoot Symptoms going on for a year and not improving Last 5 Encounter Wt Readings: Date: Wt: 01/31/2023 104.6 kg (230 lb 8 oz) 08/21/2022 101.5 kg (223 lb 11.2 oz) 08/02/2021 96.2 kg (212 lb) 05/02/2021 95.7 kg (211 lb) 01/27/2021 93.9 kg (207 lb) Component Latest Ref Rng AND Units 01/25/2023 Protein, Total 6.3 - 8.0 g/dL 7.9 Albumin 3.9 - 4.9 g/dL 4.8 Calcium 8.5 - 10.2 mg/dL 9.5 Bilirubin, Total 0.2 - 1.3 mg/dL 0.3 Alkaline Phosphatase 34 - 123 U/L 123 AST 13 - 35 U/L 16 ALT 7 - 38 U/L 15 Glucose 74 - 99 mg/dL 95 BUN 7 - 21 mg/dL 8 Creatinine 0.58 - 0.96 mg/dL 0.79 Sodium 136 - 144 mmol/L 138 Potassium 3.7 - 5.1 mmol/L 4.6 Chloride 97 - 105 mmol/L 103 CO2 22 - 30 mmol/L 24 Anion Gap 9 - 18 mmol/L 11 eGFR >=60 mL/min/1.73mA? 97 TSH 0.270 - 4.200 mIU/L 2.060 FSH See comment mIU/mL 8.1 Prolactin 4.8 - 23.3 ng/mL 9.0 DHEA-S 60.9 - 337.0 ug/dL 51.9 (L) Objective: BP 126/80 Pulse 74 Resp 16 Wt 104.6 kg (230 lb 8 oz) LMP 01/28/2023 (Within Days) BMI 38.36 kg/m? General appearance:Obese, well appearing, alert, in no acute distress, and well-hydrated, well nourished Psych: Posture and motor behavior: normal posture and motor behavior Dress, grooming, personal hygiene: normal dress and grooming Facial expression: smiling and good eye contact Speech: normal speech Mood: cheerful Coherency and relevance of thought: normal thought processes Memory: normal memory ASSESSMENT/PLAN: 1. Anxiety with depression - ICD9: 300.4, ICD10: F41.8 (primary diagnosis) 2. PMS (premenstrual syndrome) - ICD9: 625.4, ICD10: N94.3 - continue fluoxetine. Add bupropion 150 to 300 mg of bupropion - BUPROPION XL 150 MG TAB 3. Plantar fasciitis - ICD9: 728.71, ICD10: M72.2 - handout of stretching exercises given - advised not to wear flip flops or walk barefoot - CONSULT TO PODIATRY I spent a total of 40 minutes on the date of the service which included preparing to see the patient, [id number] patient care, completing clinical documentation, obtaining and/or reviewing separately obtained history, performing a medically appropriate examination, counseling and educating the patient/family/caregiver, and ordering medications, tests, or procedures. Pattie Hayes DO [facility] 01-31-2023 History of Presen t illness Narrative CC: Irregular menses and hot flashes HPI: 42 year old female presents with for irregular menses and hot flashes Past two months menses have been supervisor type photography than normal Only had spotting for about 1.5 days Describes bleeding as brown in color Menses three months ago was normal States she feels warm all the time Will have episodes in which she starts sweating profusely Symptoms not worse at night Decreased sex drive Feeling more irritable as well Switched from adderall to vyvanse in December Feeling better on vyvanse is helping with motivation more Also on bupropion and fluoxetine They irritability is a large problem Got written up at work States she is emotional and crying Symptoms worse the week prior to menses 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 but 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 with co-workers Likes job She is still smoking Has decreased amount though Having pain in heels Has tried different shoes and inserts Pain worse after prolonged sitting Rarely walking barefoot Symptoms going on for a year and not improving Last 5 Encounter Wt Readings: Date: Wt: 01/31/2023 104.6 kg (230 lb 8 oz) 08/21/2022 101.5 kg (223 lb 11.2 oz) 08/02/2021 96.2 kg (212 lb) 05/02/2021 95.7 kg (211 lb) 01/27/2021 93.9 kg (207 lb) Component Latest Ref Rng & Units 01/25/2023 Protein, Total 6.3 - 8.0 g/dL 7.9 Albumin 3.9 - 4.9 g/dL 4.8 Calcium 8.5 - 10.2 mg/dL 9.5 Bilirubin, Total 0.2 - 1.3 mg/dL 0.3 Alkaline Phosphatase 34 - 123 U/L 123 AST 13 - 35 U/L 16 ALT 7 - 38 U/L 15 Glucose 74 - 99 mg/dL 95 BUN 7 - 21 mg/dL 8 Creatinine 0.58 - 0.96 mg/dL 0.79 Sodium 136 - 144 mmol/L 138 Potassium 3.7 - 5.1 mmol/L 4.6 Chloride 97 - 105 mmol/L 103 CO2 22 - 30 mmol/L 24 Anion Gap 9 - 18 mmol/L 11 eGFR >=60 mL/min/1.73m 97 TSH 0.270 - 4.200 mIU/L 2.060 FSH See comment mIU/mL 8.1 Prolactin 4.8 - 23.3 ng/mL 9.0 DHEA-S 60.9 - 337.0 ug/dL 51.9 (L) Objective: BP 126/80 Pulse 74 Resp 16 Wt 104.6 kg (230 lb 8 oz) LMP 01/28/2023 (Within Days) BMI 38.36 kg/m General appearance:Obese, well appearing, alert, in no acute distress, and well-hydrated, well nourished Psych: Posture and motor behavior: normal posture and motor behavior Dress, grooming, personal hygiene: normal dress and grooming Facial expression: smiling and good eye contact Speech: normal speech Mood: cheerful Coherency and relevance of thought: normal thought processes Memory: normal memory ASSESSMENT/PLAN: 1. Anxiety with depression - ICD9: 300.4, ICD10: F41.8 (primary diagnosis) 2. PMS (premenstrual syndrome) - ICD9: 625.4, ICD10: N94.3 - continue fluoxetine. Add bupropion 150 to 300 mg of bupropion - BUPROPION XL 150 MG TAB 3. Plantar fasciitis - ICD9: 728.71, ICD10: M72.2 - handout of stretching exercises given - advised not to wear flip flops or walk barefoot - CONSULT TO PODIATRY I spent a total of 40 minutes on the date of the service which included preparing to see the patient, [id number] patient care, completing clinical documentation, obtaining and/or reviewing separately obtained history, performing a medically appropriate examination, counseling and educating the patient/family/caregiver, and ordering medications, tests, or procedures. Pattie Hayes DO documented in this encounter [facility] 12-21-2022 Miscellaneous Notes Patient has been identified by name and date of : Yes Patient phones requesting refills as follows: Requested Prescriptions Pending Prescriptions Disp Refills buPROPion XL (WELLBUTRIN XL) 300 mg 24 hr tablet [Pharmacy Med Name: BUPROPION HCL XL 300 MG TABLET] 90 tablet 1 Sig: TAKE 1 TABLET BY MOUTH EVERY DAY Last appointment: 01/27/2021 Next scheduled appointment: RX INSTRUCTIONS: Respond to pharmacy only and close encounter Janessa Ontiveros RN documented in this encounter [facility] 12-05-2022 Note HNO ID: [id number] Author: Pattie Hayes DO Service: ? Author Type: Physician Type: Progress Notes Filed: 12/05/2022 9:19 AM Note Text: This visit was conducted as a virtual visit. Pt is currently in her car as she is at work. I have communicated my name and active licensure. The patient's identity and physical location were verified at the time of this visit. 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 Attention deficit hyperactivity disorder (ADHD), unspecified ADHD type - ICD9: 314.01, ICD10: F90.9 (primary diagnosis) 2. Binge eating - ICD9: 783.6, ICD10: R63.2 - will stop adderall once she has finished current rx and then start on vyvanse - LISDEXAMFETAMINE 50 MG CAPSULE Follow up in mid December Pattie Hayes DO [facility] 12-05-2022 History of Presen t illness Narrative This visit was conducted as a virtual visit. Pt is currently in her car as she is at work. I have communicated my name and active licensure. The patient's identity and physical location were verified at the time of this visit. 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 Attention deficit hyperactivity disorder (ADHD), unspecified ADHD type - ICD9: 314.01, ICD10: F90.9 (primary diagnosis) 2. Binge eating - ICD9: 783.6, ICD10: R63.2 - will stop adderall once she has finished current rx and then start on vyvanse - LISDEXAMFETAMINE 50 MG CAPSULE Follow up in mid December Pattie Hayes DO documented in this encounter [facility] 11-08-2022 Miscellaneous Notes November 09, 2022 PID: [id number] Noemy Wolff [address] [place] [address] Dear Ms. Wolff, We are pleased to inform you that the results of your recent breast imaging exam on 11/08/2022 are normal. Early detection of cancer is very important. We also understand recommendations regarding breast cancer screening are controversial. Please discuss with your primary care provider which strategy is best for you and whether a mammogram is right for you. Your imaging studies and report will be kept on file at [facility] as part of your permanent medical record and are available for your continuing care. Thank you for allowing us to help in meeting your health care needs. Sincerely, Dr. Allison Interpreting Radiologist [facility] (Normal over 40) documented in this encounter [facility] 11-08-2022 Note HNO ID: [id number] Author: Krystina Chavez, Mammo Airtime Service: ? Author Type: Braid Folder Type: Progress Notes Filed: 11/08/2022 11:38 AM Note Text: Radiology Service Progress Note PATIENT NAME: Noemy Wolff DATE OF SERVICE: November 08, 2022 TIME: 11:19 AM PATIENT IDENTITY VERIFICATION COMPLETED USING TWO (2) IDENTIFIERS: Name and Date of confirmed by patient verbally. FALL SCREENING: Has the patient had 2 falls in the last year or 1 fall with injury or currently using an Ambulatory Assistive Device (Walker, Cane, Wheelchair, Crutches, etc.)? No PATIENT GENDER DATA: Female. status: : No status: NO. PATIENT RELEVANT IMPLANT DATA REVIEWED: Not Applicable RADIOLOGY DEPARTMENT: Mammography PERIPHERAL IV DATA: Not applicable SIGNED BY: Krystina Chavez WedWu November 08, 2022 11:19 AM [facility] 10-26-2022 Miscellaneous Notes Pharmacy electronically requesting refills as follows: Requested Prescriptions Pending Prescriptions Disp Refills olopatadine (PATANOL) 0.1 % ophthalmic solution 5 mL 2 Sig: Use 1 Drop in both eyes twice daily. Last Office Visit:08/21/2022 Next Office Visit:no upcoming appt Recent Labs: Please review and advise. Lizbeth Thompson Ma documented in this encounter [facility] 10-22-2022 Miscellaneous Notes Patient last seen 08/21/2022 Last filled 09/20/2022 PDMP website checked and validated. All prescriptions have been APPROPRIATELY filled. No suspicious activity was identified. 10/22/2022 by Judith Gustafson PA-C Patient has been identified by name and date of : Yes Patient phones requesting refills as follows: Requested Prescriptions Pending Prescriptions Disp Refills Amphetamine-Dextroamphetamine (ADDERALL) 30 mg tablet 60 tablet 0 Sig: Take 1 tablet by mouth twice daily for 30 days. Last appointment: 08/21/2022 Next scheduled appointment: Appointments for Next 60 Days Date Time Provider Location Dept Phone 11/08/2022 11:10 AM SCREEN MAMMO [facility] Yeimy Copeland [phone] RX INSTRUCTIONS: OK to close encounter Jose Angel Arrington RN documented in this encounter [facility] 09-18-2022 Miscellaneous Notes Duplicate request. Patient has been identified by name and date of : Yes Patient phones requesting refills as follows: Requested Prescriptions Pending Prescriptions Disp Refills Amphetamine-Dextroamphetamine (ADDERALL) 30 mg tablet 60 tablet 0 Sig: Take 1 tablet by mouth twice daily for 30 days. Do not start before September 21, 2022. Last appointment: 08/21/2022 Next scheduled appointment: Appointments for Next 60 Days Date Time Provider Location Dept Phone 11/08/2022 11:10 AM SCREEN MAMMO [facility] Yeimy Copeland [phone] RX INSTRUCTIONS: Respond to pharmacy Anna Valencia RN documented in this encounter [facility] 08-21-2022 Note HNO ID: [id number] Author: Pattie Hayes, DO Service: ? 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 General appearance:well appearing, alert, in no acute distress, and well-hydrated, well nourished Neck: supple and no adenopathy Heart: regular rate and rhythm, without murmur Lungs: clear to auscultation, without rales or wheeze, good air exchange Ext: no edema in LE bilaterally Psych: Posture and motor behavior: normal posture and motor behavior Dress, grooming, personal hygiene: normal dress and grooming Facial expression: smiling and good eye contact Speech: normal speech Mood: cheerful Coherency and relevance of thought: normal thought processes Memory: normal memory ASSESSMENT/PLAN: 1. Anxiety with depression - ICD9: 300.4, ICD10: F41.8 (primary diagnosis) - continue fluoxetine and wellbutrin 2. Encounter for immunization - ICD9: V03.89, ICD10: Z23 - INFLUENZA VACCINE QUADRIVALENT 6 MO - 64 YRS IM 3. Attention deficit disorder, unspecified hyperactivity presence - ICD9: 314.00, ICD10: F98.8 - would like to try decreasing dose so will go from 35 to 30 mg - DEXTROAMPHETAMINE-AMPHETAMINE 30 MG TABLET Pattie Hayes, [facility] 08-21-2022 History of Presen t illness Narrative CC: Follow up HPI: 42 year old female presents for follow up I last saw patient in January On fluoxetine 40 mg and bupropion xl 300 mg Also on adderall 35 mg BID PDMP report reviewed Feeling good on medications Feels since mood is improved concentration is improved Doesn't feel she needs as much adderall and wondering about decreasing dose 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 Likes job a lot Declines COVID booster States she has had COVID twice Last had COVID 1.5 months ago Objective: BP 131/88 Pulse 62 Resp 16 Wt 101.5 kg (223 lb 11.2 oz) LMP 08/07/2022 (Within Days) BMI 37.23 kg/m General appearance:well appearing, alert, in no acute distress, and well-hydrated, well nourished Neck: supple and no adenopathy Heart: regular rate and rhythm, without murmur Lungs: clear to auscultation, without rales or wheeze, good air exchange Ext: no edema in LE bilaterally Psych: Posture and motor behavior: normal posture and motor behavior Dress, grooming, personal hygiene: normal dress and grooming Facial expression: smiling and good eye contact Speech: normal speech Mood: cheerful Coherency and relevance of thought: normal thought processes Memory: normal memory ASSESSMENT/PLAN: 1. Anxiety with depression - ICD9: 300.4, ICD10: F41.8 (primary diagnosis) - continue fluoxetine and wellbutrin 2. Encounter for immunization - ICD9: V03.89, ICD10: Z23 - INFLUENZA VACCINE QUADRIVALENT 6 MO - 64 YRS IM 3. Attention deficit disorder, unspecified hyperactivity presence - ICD9: 314.00, ICD10: F98.8 - would like to try decreasing dose so will go from 35 to 30 mg - DEXTROAMPHETAMINE-AMPHETAMINE 30 MG TABLET Pattie Hayes DO documented in this encounter [facility] 08-17-2022 Miscellaneous Notes Patient is scheduled for appointment 08/21. LVM for pt to call back and schedule Sent MYC to call back and schedule Patient needs IN-PERSON assessment. Has not been seen since 08/02/2021 and must be seen in person once a year for this prescription. Patient has been identified by name and date of : Yes Patient phones requesting refills as follows: Requested Prescriptions Pending Prescriptions Disp Refills Amphetamine-Dextroamphetamine (ADDERALL) 30 mg tablet 60 tablet 0 Sig: Take 1 tablet by mouth twice daily for 30 days. dextroamphetamine-amphetamine (ADDERALL) 5 mg tablet 60 tablet 0 Sig: Take 1 tablet by mouth twice daily for 30 days. Take in addition to 30 mg Last appointment: 08/02/2021 Next scheduled appointment: RX INSTRUCTIONS: Respond to pharmacy Anna Valencia RN documented in this encounter [facility] 08-09-2022 Note Patient Outreach (IN [facility]) NOEMY WOLFF ([id number]) 1980 F Date Time Provider Department 08/09/22 PATTIE HAYES During your visit today, we recorded the following information about you: Allergies As of Date: 08/09/2022 Noted Allergy Reaction LATEX 07/22/2010 5 - Intolerance Comments: BLISTERING ON HANDS Date Reviewed: 08/02/2021 Reviewed by: Taty Cloud Ma - Fully Assessed Visit Diagnosis:Encounter for screening mammogram for breast cancer [Z12.31] Order(s):[facility] SCRE[facility] [[id number]] Order #: [id number] FUTURE Prescriptions as of 08/13/2022 - Amphetamine-Dextroamphetamine (ADDERALL) 30 mg tablet Take 1 tablet by mouth twice daily for 30 days. - dextroamphetamine-amphetamine (ADDERALL) 5 mg tablet Take 1 tablet by mouth twice daily for 30 days. Take in addition to 30 mg - omeprazole (PRILOSEC) 40 mg capsule Take 1 capsule by mouth twice daily. - FLUoxetine (PROZAC) 40 mg capsule Take 2 capsules by mouth once daily. - fluticasone (FLONASE) 50 mcg/actuation nasal spray Use 1 [place] in each nostril once daily. - buPROPion XL (WELLBUTRIN XL) 300 mg 24 hr tablet Take 1 tablet by mouth once daily. - lamoTRIgine (LAMICTAL) 25 mg tablet Take 1 tablet by mouth once daily. - clotrimazole (LOTRIMIN, CLOTRIM) 1 % cream Apply 1 application to affected area twice daily. - olopatadine (PATANOL) 0.1 % ophthalmic solution Use 1 Drop in both eyes twice daily. - hydrOXYzine HCl (ATARAX) 25 mg tablet Take 1 tablet by mouth three times daily as needed (for itching). - ondansetron (ZOFRAN) 4 mg tablet Take 1 tablet by mouth every 12 hours as needed. - albuterol HFA (PROAIR HFA) 90 mcg/actuation inhaler Inhale 2 Puffs as instructed every 6 hours as needed. Problem List As Of Date 08/09/2022 Noted Resolved ADD (attention deficit disorder) [F98.8] 06/10/2010 Carpal tunnel syndrome, bilateral [G56.03] 06/10/2010 02/18/2013 Crohn's disease [K50.90] 06/10/2010 Back pain [M54.9] 06/26/2011 Depression [F32.A] 08/20/2011 03/24/2019 Esophageal reflux [K21.9] 01/23/2012 Tobacco use [Z72.0] 04/03/2012 Backache, unspecified [M54.9] 09/14/2013 12/20/2014 Opioid abuse [F11.10] 06/19/2016 09/14/2017 Anxiety with depression [F41.8] Encounter Status:Closed by [facility], PROD[facility] on 08/13/22 [facility] 07-19-2022 Miscellaneous Notes PDMP website checked and validated. All prescriptions have been APPROPRIATELY filled. No suspicious activity was identified. 07/19/2022 by Deidre Seth APRN.CNP The following approved medication requests have been transmitted electronically. Requested Prescriptions Signed Prescriptions Disp Refills Amphetamine-Dextroamphetamine (ADDERALL) 30 mg tablet 60 tablet 0 Sig: Take 1 tablet by mouth twice daily for 30 days. Authorizing Provider: DEIDRE SETH dextroamphetamine-amphetamine (ADDERALL) 5 mg tablet 60 tablet 0 Sig: Take 1 tablet by mouth twice daily for 30 days. Take in addition to 30 mg Authorizing Provider: DEIDRE SETH APRN.CNP Patient electronically sent a request for the following prescription(s) Requested Prescriptions Pending Prescriptions Disp Refills Amphetamine-Dextroamphetamine (ADDERALL) 30 mg tablet 60 tablet 0 Sig: Take 1 tablet by mouth twice daily for 30 days. dextroamphetamine-amphetamine (ADDERALL) 5 mg tablet 60 tablet 0 Sig: Take 1 tablet by mouth twice daily for 30 days. Take in addition to 30 mg Last appt 08/02/2021 Future appt Visit date not found Patient aware RX will be sent to pharmacy. No need to notify patient. Please review. Angelique Gibson MA documented in this encounter [facility] 07-10-2022 Miscellaneous Notes Patient has been identified by name and date of : Yes Patient phones requesting refills as follows: Requested Prescriptions Pending Prescriptions Disp Refills fluticasone (FLONASE) 50 mcg/actuation nasal spray 3 Each 2 Sig: Use 1 [place] in each nostril once daily. Last appointment: 01/27/2021 Next scheduled appointment: No RX INSTRUCTIONS: OK to close encounter ОЛЬГА GALLARDO LPN documented in this encounter [facility] 06-18-2022 Miscellaneous Notes PDMP website checked and validated. All prescriptions have been APPROPRIATELY filled. No suspicious activity was identified. 06/18/2022 by Gisella Carroll APRN.CNP The following approved medication requests have been transmitted electronically. Requested Prescriptions Signed Prescriptions Disp Refills Amphetamine-Dextroamphetamine (ADDERALL) 30 mg tablet 60 tablet 0 Sig: Take 1 tablet by mouth twice daily for 30 days. Do not start before June 19, 2022. Authorizing Provider: GISELLA CARROLL dextroamphetamine-amphetamine (ADDERALL) 5 mg tablet 60 tablet 0 Sig: Take 1 tablet by mouth twice daily for 30 days. Take in addition to 30 mg Do not start before June 19, 2022. Authorizing Provider: GISELLA CARROLL APRN.CNP Patient has been identified by name and date of : Yes Patient phones requesting refills as follows: Requested Prescriptions Pending Prescriptions Disp Refills Amphetamine-Dextroamphetamine (ADDERALL) 30 mg tablet 60 tablet 0 Sig: Take 1 tablet by mouth twice daily for 30 days. dextroamphetamine-amphetamine (ADDERALL) 5 mg tablet 60 tablet 0 Sig: Take 1 tablet by mouth twice daily for 30 days. Take in addition to 30 mg Last appointment: 01/31/2022 [facility] Next scheduled appointment: RX INSTRUCTIONS: Respond to pharmacy only and close encounter Elsi Phelps MA documented in this encounter [facility] 05-08-2022 Miscellaneous Notes Pharmacy electronically requesting refills as follows: Requested Prescriptions Pending Prescriptions Disp Refills lamoTRIgine (LAMICTAL) 25 mg tablet 90 tablet 3 Sig: Take 1 tablet by mouth once daily. Last Office Visit:01/31/2022 Next Office Visit:no upcoming appt Recent Labs: Please review and advise. Lizbeth Thompson Ma documented in this encounter [facility] 03-21-2022 Miscellaneous Notes Refilled in another encounter Pattie Hayes DO Pharmacy electronically requesting refills as follows: Pending Prescriptions Disp Refills DEXTROAMPHETAMINE-AMPHETAMINE 30 MG TABLET 60 tablet 0 Sig: Take 1 tablet by mouth twice daily for 30 days. WILLIE Class: C-II STEVE: No DEXTROAMPHETAMINE-AMPHETAMINE 5 MG TABLET 60 tablet 0 Sig: Take 1 tablet by mouth twice daily for 30 days. Take in addition to 30 mg WILLIE Class: C-II STEVE: No Last Office Visit:01/31/2022 Next Office Visit:no upcoming appt Recent Labs: Please review and advise. Lizbeth Thompson Ma documented in this encounter [facility] 02-20-2022 Miscellaneous Notes RX was already sent documented in this encounter [facility] 01-31-2022 History of Presen t illness Narrative This visit was conducted as a virtual visit. Pt is currently at home CC: Follow up HPI: 41 year old female presents for medication follow up I last saw patient in October Increased dose of effexor at that time She was also on wellbutrin for her depression and adderall for ADHD Pt messaged in December that effexor and wellbutrin were not effective Stopped effexor and started on prozac Feels better on prozac compared to effexor Took 40 mg for 2 weeks then increased to 80 mg as didn't find 40 mg effective Feeling pretty good on medication Still with some irritability and mood swings Motivation improved Sleeping much better PDMP report reviewed Objective: General appearance:well appearing, alert, in no acute distress and well-hydrated, well nourished Psych: Posture and motor behavior: normal posture and motor behavior Dress, grooming, personal hygiene: normal dress and grooming Facial expression: smiling and good eye contact Speech: normal speech Mood: euthymic Coherency and relevance of thought: normal thought processes Memory: normal memory ASSESSMENT/PLAN: 1. Anxiety with depression - ICD9: 300.4, ICD10: F41.8 - Continue wellbutrin and fluoxetine. If symptoms not improving consider mood stabilizer - FLUOXETINE 40 MG CAPSULE Pattie Hayes DO documented in this encounter [facility] 01-22-2022 Miscellaneous Notes PDMP report reviewed The following approved medication requests have been transmitted electronically. Signed Prescriptions Disp Refills Amphetamine-Dextroamphetamine (ADDERALL) 30 mg tablet 60 tablet 0 Sig: Take 1 tablet by mouth twice daily for 30 days. WILLIE Class: C-II STEVE: No Authorizing Provider: PATTIE HAYES dextroamphetamine-amphetamine (ADDERALL) 5 mg tablet 60 tablet 0 Sig: Take 1 tablet by mouth twice daily for 30 days. Take in addition to 30 mg WILLIE Class: C-II STEVE: No Authorizing Provider: PATTIE HAYES DO Patient has been identified by name and date of : Yes Patient phones requesting refills as follows: Pending Prescriptions Disp Refills DEXTROAMPHETAMINE-AMPHETAMINE 30 MG TABLET 60 tablet 0 Sig: Take 1 tablet by mouth twice daily for 30 days. WILLIE Class: C-II STEVE: No DEXTROAMPHETAMINE-AMPHETAMINE 5 MG TABLET 60 tablet 0 Sig: Take 1 tablet by mouth twice daily for 30 days. Take in addition to 30 mg WILLIE Class: C-II STEVE: No Last appointment: 08/02/2021 Next scheduled appointment: Appointments for Next 60 Days Date Time Provider Location Dept Phone 01/31/2022 8:40 AM PATTIE HAYES [facility]IA TAYLOR [phone] RX INSTRUCTIONS: Respond to pharmacy Anna Valencia RN documented in this encounter [facility] 12-25-2021 Miscellaneous Notes Patient last seen 10/31/2021 Last filled 11/25/2021 PDMP website checked and validated. All prescriptions have been APPROPRIATELY filled. No suspicious activity was identified. 12/25/2021 by Judith Verde PA-C Patient's request for medication is as follows: Signed Prescriptions Disp Refills Amphetamine-Dextroamphetamine (ADDERALL) 30 mg tablet 60 tablet 0 Sig: Take 1 tablet by mouth twice daily for 30 days. WILLIE Class: C-II STEVE: No Authorizing Provider: JUDITH VERDE dextroamphetamine-amphetamine (ADDERALL) 5 mg tablet 60 tablet 0 Sig: Take 1 tablet by mouth twice daily for 30 days. Take in addition to 30 mg WILLIE Class: C-II STEVE: No Authorizing Provider: JUDITH VERDE Prescription(s) as above. Please process accordingly. Judith Verde PA-C Patient has been identified by name and date of : Yes Patient phones requesting refills as follows: Pending Prescriptions Disp Refills DEXTROAMPHETAMINE-AMPHETAMINE 30 MG TABLET 60 tablet 0 Sig: Take 1 tablet by mouth twice daily for 30 days. WILLIE Class: C-II STEVE: No DEXTROAMPHETAMINE-AMPHETAMINE 5 MG TABLET 60 tablet 0 Sig: Take 1 tablet by mouth twice daily for 30 days. Take in addition to 30 mg WILLIE Class: C-II STEVE: No Last appointment: 08/02/2021 Next scheduled appointment: Appointments for Next 60 Days Date Time Provider Location Dept Phone 01/31/2022 8:40 AM PATTIE HAYES [facility] T[place] [phone] RX INSTRUCTIONS: Respond to pharmacy Anna Valencia RN documented in this encounter [facility] 12-22-2021 Miscellaneous Notes The following approved medication requests have been transmitted electronically. Signed Prescriptions Disp Refills FLUoxetine (PROZAC) 40 mg capsule 90 capsule 0 Sig: Take 1 capsule by mouth once daily. Deidre Seth APRN.CHEN documented in this encounter [facility] 11-29-2021 History of Presen t illness Narrative This Team Access Model visit is a virtual encounter via [employer] zoom. It required patient-provider interaction for the medical decision making as documented below. VIRTUAL VISIT PROGRESS NOTE This is a virtual visit. It required patient-provider interaction for the medical decision making as documented below. Persons Present: patient Chief Complaint/Reason: urinary issues HPI: Patient is a 41 y/o F who presents with above. -2 days ago she began to notice difficulty urinating -Admits to urinary hesitancy. Feels like she has to go, but when she tries she can't -Admits to frequency -Admits to suprapubic burning pain prior to urinating -Admits to midline back pain -Admits to thick, yellow discharge when wiping. This only happened once -Denies dysuria -Denies fever or chills -Denies hematuria -Denies vaginal itching. Does note an odor. -She has never had anything like this before Data Reviewed: Most recent labs and imaging results. REVIEW OF SYSTEMS: As noted in HPI PHYSICAL EXAMINATION: VIDEO EXAM: (if completed, performed via video enabled technology) GENERAL: alert and appropriate, in no distress, well-hydrated, well nourished and happy, smiling, interactive RESPIRATORY: breathing non-labored ABDOMEN: soft and non-tender BACK: Pt notes CVAT when palpating B/L flanks, R>L ASSESSMENT/PLAN: (R39.11) Urinary hesitancy (primary encounter diagnosis) Comment: Difficult to assess virtually. UTI vs vaginitis. Pt states she is unable to go to lab or come in for visit as she does not currently have transportation. has the car at work and won't be off until 6 pm, soonest she can go to lab is Saturday. We discussed [facility] may be the best option for her as she can be seen in person, complete the necessary testing and there are multiple [facility] around her open until 8 pm. She is agreeable to going to EC. Plan: -Pt will go to EC when she has a ride -Push fluids -Red flags discussed Total time spent with patient: 14 min Orville Bautista PA-C documented in this encounter [facility] documented as of this encounter (statuses as of 11/29/2021) [facility] History of Past illness Narrative* Problem Noted Date Resolved Date Opioid abuse 06/19/2016 09/14/2017 Backache, unspecified 09/14/2013 12/20/2014 Depression 08/20/2011 03/24/2019 Carpal tunnel syndrome, bilateral 06/10/2010 02/18/2013 documented as of this encounter (statuses as of 12/22/2021) [facility] History of Past illness Narrative* Problem Noted Date Resolved Date Opioid abuse 06/19/2016 09/14/2017 Backache, unspecified 09/14/2013 12/20/2014 Depression 08/20/2011 03/24/2019 Carpal tunnel syndrome, bilateral 06/10/2010 02/18/2013 documented as of this encounter (statuses as of 12/25/2021) [facility] History of Past illness Narrative* Problem Noted Date Resolved Date Opioid abuse 06/19/2016 09/14/2017 Backache, unspecified 09/14/2013 12/20/2014 Depression 08/20/2011 03/24/2019 Carpal tunnel syndrome, bilateral 06/10/2010 02/18/2013 documented as of this encounter (statuses as of 12/25/2021) [facility] History of Past illness Narrative* Problem Noted Date Resolved Date Opioid abuse 06/19/2016 09/14/2017 Backache, unspecified 09/14/2013 12/20/2014 Depression 08/20/2011 03/24/2019 Carpal tunnel syndrome, bilateral 06/10/2010 02/18/2013 documented as of this encounter (statuses as of 01/23/2022) [facility] History of Past illness Narrative* Problem Noted Date Resolved Date Opioid abuse 06/19/2016 09/14/2017 Backache, unspecified 09/14/2013 12/20/2014 Depression 08/20/2011 03/24/2019 Carpal tunnel syndrome, bilateral 06/10/2010 02/18/2013 documented as of this encounter (statuses as of 01/31/2022) [facility] History of Past illness Narrative* Problem Noted Date Resolved Date Opioid abuse 06/19/2016 09/14/2017 Backache, unspecified 09/14/2013 12/20/2014 Depression 08/20/2011 03/24/2019 Carpal tunnel syndrome, bilateral 06/10/2010 02/18/2013 documented as of this encounter (statuses as of 02/20/2022) [facility] History of Past illness Narrative* Problem Noted Date Resolved Date Opioid abuse 06/19/2016 09/14/2017 Backache, unspecified 09/14/2013 12/20/2014 Depression 08/20/2011 03/24/2019 Carpal tunnel syndrome, bilateral 06/10/2010 02/18/2013 documented as of this encounter (statuses as of 03/21/2022) [facility] History of Past illness Narrative* Problem Noted Date Resolved Date Opioid abuse 06/19/2016 09/14/2017 Backache, unspecified 09/14/2013 12/20/2014 Depression 08/20/2011 03/24/2019 Carpal tunnel syndrome, bilateral 06/10/2010 02/18/2013 documented as of this encounter (statuses as of 05/09/2022) [facility] History of Past illness Narrative* Problem Noted Date Resolved Date Opioid abuse 06/19/2016 09/14/2017 Backache, unspecified 09/14/2013 12/20/2014 Depression 08/20/2011 03/24/2019 Carpal tunnel syndrome, bilateral 06/10/2010 02/18/2013 documented as of this encounter (statuses as of 06/18/2022) [facility] History of Past illness Narrative* Problem Noted Date Resolved Date Opioid abuse 06/19/2016 09/14/2017 Backache, unspecified 09/14/2013 12/20/2014 Depression 08/20/2011 03/24/2019 Carpal tunnel syndrome, bilateral 06/10/2010 02/18/2013 documented as of this encounter (statuses as of 07/11/2022) [facility] History of Past illness Narrative* Problem Noted Date Resolved Date Opioid abuse 06/19/2016 09/14/2017 Backache, unspecified 09/14/2013 12/20/2014 Depression 08/20/2011 03/24/2019 Carpal tunnel syndrome, bilateral 06/10/2010 02/18/2013 documented as of this encounter (statuses as of 07/19/2022) [facility] History of Past illness Narrative* Problem Noted Date Resolved Date Opioid abuse 06/19/2016 09/14/2017 Backache, unspecified 09/14/2013 12/20/2014 Depression 08/20/2011 03/24/2019 Carpal tunnel syndrome, bilateral 06/10/2010 02/18/2013 documented as of this encounter (statuses as of 08/17/2022) [facility] History of Past illness Narrative* Problem Noted Date Resolved Date Opioid abuse 06/19/2016 09/14/2017 Backache, unspecified 09/14/2013 12/20/2014 Depression 08/20/2011 03/24/2019 Carpal tunnel syndrome, bilateral 06/10/2010 02/18/2013 documented as of this encounter (statuses as of 08/21/2022) [facility] History of Past illness Narrative* Problem Noted Date Resolved Date Opioid abuse 06/19/2016 09/14/2017 Backache, unspecified 09/14/2013 12/20/2014 Depression 08/20/2011 03/24/2019 Carpal tunnel syndrome, bilateral 06/10/2010 02/18/2013 documented as of this encounter (statuses as of 09/18/2022) [facility] History of Past illness Narrative* Problem Noted Date Resolved Date Opioid abuse 06/19/2016 09/14/2017 Backache, unspecified 09/14/2013 12/20/2014 Depression 08/20/2011 03/24/2019 Carpal tunnel syndrome, bilateral 06/10/2010 02/18/2013 documented as of this encounter (statuses as of 10/22/2022) [facility] History of Past illness Narrative* Problem Noted Date Resolved Date Opioid abuse 06/19/2016 09/14/2017 Backache, unspecified 09/14/2013 12/20/2014 Depression 08/20/2011 03/24/2019 Carpal tunnel syndrome, bilateral 06/10/2010 02/18/2013 documented as of this encounter (statuses as of 10/22/2022) [facility] History of Past illness Narrative* Problem Noted Date Resolved Date Opioid abuse 06/19/2016 09/14/2017 Backache, unspecified 09/14/2013 12/20/2014 Depression 08/20/2011 03/24/2019 Carpal tunnel syndrome, bilateral 06/10/2010 02/18/2013 documented as of this encounter (statuses as of 10/26/2022) [facility] History of Past illness Narrative* Problem Noted Date Resolved Date Opioid abuse 06/19/2016 09/14/2017 Backache, unspecified 09/14/2013 12/20/2014 Depression 08/20/2011 03/24/2019 Carpal tunnel syndrome, bilateral 06/10/2010 02/18/2013 documented as of this encounter (statuses as of 11/10/2022) [facility] of Past illness Narrative* Problem Noted Date Resolved Date Opioid abuse 06/19/2016 09/14/2017 Backache, unspecified 09/14/2013 12/20/2014 Depression 08/20/2011 03/24/2019 Carpal tunnel syndrome, bilateral 06/10/2010 02/18/2013 documented as of this encounter (statuses as of 12/05/2022) [facility] History of Past illness Narrative* Problem Noted Date Resolved Date Opioid abuse 06/19/2016 09/14/2017 Backache, unspecified 09/14/2013 12/20/2014 Depression 08/20/2011 03/24/2019 Carpal tunnel syndrome, bilateral 06/10/2010 02/18/2013 documented as of this encounter (statuses as of 12/22/2022) [facility] History of Past illness Narrative* Problem Noted Date Resolved Date Opioid abuse 06/19/2016 09/14/2017 Backache, unspecified 09/14/2013 12/20/2014 Depression 08/20/2011 03/24/2019 Carpal tunnel syndrome, bilateral 06/10/2010 02/18/2013 documented as of this encounter (statuses as of 01/31/2023) [facility] History of Past illness Narrative* Problem Noted Date Resolved Date Opioid abuse 06/19/2016 09/14/2017 Backache, unspecified 09/14/2013 12/20/2014 Depression 08/20/2011 03/24/2019 Carpal tunnel syndrome, bilateral 06/10/2010 02/18/2013 documented as of this encounter (statuses as of 02/22/2023) [facility] History of Past illness Narrative* Problem Noted Date Diagnosed Date Resolved Date Opioid abuse 06/19/2016 09/14/2017 Backache, unspecified 09/14/20132014 Depression 08/20/2011 03/24/2019 Carpal tunnel syndrome, bilateral 06/10/2010 02/18/2013 documented as of this encounter (statuses as of 03/19/2023) [facility] History of Past illness Narrative* Problem Noted Date Diagnosed Date Resolved Date Opioid abuse 06/19/2016 09/14/2017 Backache, unspecified 09/14/20132014 Depression 08/20/2011 03/24/2019 Carpal tunnel syndrome, bilateral 06/10/2010 02/18/2013 documented as of this encounter (statuses as of 03/20/2023) [facility] History of Past illness Narrative* Problem Noted Date Diagnosed Date Resolved Date Opioid abuse 06/19/2016 09/14/2017 Backache, unspecified 09/14/20132014 Depression 08/20/2011 03/24/2019 Carpal tunnel syndrome, bilateral 06/10/2010 02/18/2013 documented as of this encounter (statuses as of 04/01/2023) [facility] History of Past illness Narrative* Problem Noted Date Diagnosed Date Resolved Date Opioid abuse 06/19/2016 09/14/2017 Backache, unspecified 09/14/20132014 Depression 08/20/2011 03/24/2019 Carpal tunnel syndrome, bilateral 06/10/2010 02/18/2013 documented as of this encounter (statuses as of 04/05/2023) [facility] History of Past illness Narrative* Problem Noted Date Diagnosed Date Resolved Date Opioid abuse 06/19/2016 09/14/2017 Backache, unspecified 09/14/20132014 Depression 08/20/2011 03/24/2019 Carpal tunnel syndrome, bilateral 06/10/2010 02/18/2013 documented as of this encounter (statuses as of 04/05/2023) [facility] History of Past illness Narrative* Problem Noted Date Diagnosed Date Resolved Date Opioid abuse 06/19/2016 09/14/2017 Backache, unspecified 09/14/20132014 Depression 08/20/2011 03/24/2019 Carpal tunnel syndrome, bilateral 06/10/2010 02/18/2013 documented as of this encounter (statuses as of 04/09/2023) [facility] History of Past illness Narrative* Problem Noted Date Diagnosed Date Resolved Date Opioid abuse 06/19/2016 09/14/2017 Backache, unspecified 09/14/20132014 Depression 08/20/2011 03/24/2019 Carpal tunnel syndrome, bilateral 06/10/2010 02/18/2013 documented as of this encounter (statuses as of 04/09/2023) [facility] History of Past illness Narrative* Problem Noted Date Diagnosed Date Resolved Date Opioid abuse 06/19/2016 09/14/2017 Backache, unspecified 09/14/20132014 Depression 08/20/2011 03/24/2019 Carpal tunnel syndrome, bilateral 06/10/2010 02/18/2013 documented as of this encounter (statuses as of 05/14/2023) [facility] History of Past illness Narrative* Problem Noted Date Diagnosed Date Resolved Date Opioid abuse 06/19/2016 09/14/2017 Backache, unspecified 09/14/20132014 Depression 08/20/2011 03/24/2019 Carpal tunnel syndrome, bilateral 06/10/2010 02/18/2013 documented as of this encounter (statuses as of 05/31/2023) [facility] History of Past illness Narrative* Problem Noted Date Diagnosed Date Resolved Date Opioid abuse 06/19/2016 09/14/2017 Backache, unspecified 09/14/20132014 Depression 08/20/2011 03/24/2019 Carpal tunnel syndrome, bilateral 06/10/2010 02/18/2013 documented as of this encounter (statuses as of 06/07/2023) [facility] History of Past illness Narrative* Problem Noted Date Diagnosed Date Resolved Date Opioid abuse 06/19/2016 09/14/2017 Backache, unspecified 09/14/20132014 Depression 08/20/2011 03/24/2019 Carpal tunnel syndrome, bilateral 06/10/2010 02/18/2013 documented as of this encounter (statuses as of 06/24/2023) [facility] History of Past illness Narrative* Problem Noted Date Diagnosed Date Resolved Date Opioid abuse 06/19/2016 09/14/2017 Backache, unspecified 09/14/20132014 Depression 08/20/2011 03/24/2019 Carpal tunnel syndrome, bilateral 06/10/2010 02/18/2013 documented as of this encounter (statuses as of 06/26/2023) [facility] of Past illness Narrative* Problem Noted Date Diagnosed Date Resolved Date Opioid abuse 06/19/2016 09/14/2017 Backache, unspecified 09/14/20132014 Depression 08/20/2011 03/24/2019 Carpal tunnel syndrome, bilateral 06/10/2010 02/18/2013 documented as of this encounter (statuses as of 07/01/2023) [facility] of Past illness Narrative* Problem Noted Date Diagnosed Date Resolved Date Opioid abuse 06/19/2016 09/14/2017 Backache, unspecified 09/14/20132014 Depression 08/20/2011 03/24/2019 Carpal tunnel syndrome, bilateral 06/10/2010 02/18/2013 documented as of this encounter (statuses as of 07/12/2023) [facility] of Past illness [facility]arrative* Problem Noted Date Diagnosed Date Resolved Date Opioid abuse 06/19/2016 09/14/2017 Backache, unspecified 09/14/20132014 Depression 08/20/2011 03/24/2019 Carpal tunnel syndrome, bilateral 06/10/2010 02/18/2013 documented as of this encounter (statuses as of 07/18/2023) [facility] History of Past illness Narrative* Problem Noted Date Diagnosed Date Resolved Date Opioid abuse 06/19/2016 09/14/2017 Backache, unspecified 09/14/20132014 Depression 08/20/2011 03/24/2019 Carpal tunnel syndrome, bilateral 06/10/2010 02/18/2013 documented as of this encounter (statuses as of 07/19/2023) [facility] History of Past illness Narrative* Problem Noted Date Diagnosed Date Resolved Date Opioid abuse 06/19/2016 09/14/2017 Backache, unspecified 09/14/20132014 Depression 08/20/2011 03/24/2019 Carpal tunnel syndrome, bilateral 06/10/2010 02/18/2013 documented as of this encounter (statuses as of 07/29/2023) [facility] History of Past illness Narrative* Problem Noted Date Diagnosed Date Resolved Date Opioid abuse 06/19/2016 09/14/2017 Backache, unspecified 09/14/20132014 Depression 08/20/2011 03/24/2019 Carpal tunnel syndrome, bilateral 06/10/2010 02/18/2013 documented as of this encounter (statuses as of 08/02/2023) [facility] History of Past illness Narrative* Problem Noted Date Diagnosed Date Resolved Date Opioid abuse 06/19/2016 09/14/2017 Backache, unspecified 09/14/20132014 Depression 08/20/2011 03/24/2019 Carpal tunnel syndrome, bilateral 06/10/2010 02/18/2013 documented as of this encounter (statuses as of 08/08/2023) [facility] History of Past illness Narrative* Problem Noted Date Diagnosed Date Resolved Date Opioid abuse 06/19/2016 09/14/2017 Backache, unspecified 09/14/20132014 Depression 08/20/2011 03/24/2019 Carpal tunnel syndrome, bilateral 06/10/2010 02/18/2013 documented as of this encounter (statuses as of 08/09/2023) [facility] History of Past illness Narrative* Problem Noted Date Diagnosed Date Resolved Date Opioid abuse 06/19/2016 09/14/2017 Backache, unspecified 09/14/20132014 Depression 08/20/2011 03/24/2019 Carpal tunnel syndrome, bilateral 06/10/2010 02/18/2013 documented as of this encounter (statuses as of 10/23/2023) [facility] History of Past illness Narrative* Problem Noted Date Diagnosed Date Resolved Date Opioid abuse 06/19/2016 09/14/2017 Backache, unspecified 09/14/20132014 Depression 08/20/2011 03/24/2019 Carpal tunnel syndrome, bilateral 06/10/2010 02/18/2013 documented as of this encounter (statuses as of 10/30/2023) [facility] note* Diagnosis Urinary hesitancy- Primary [facility] [place] [facility] Diagnosis Anxiety with depression- Primary [facility] [place] [facility]* Diagnosis Attention deficit disorder, unspecified hyperactivity presence [facility] [place] [facility] Diagnosis Attention deficit disorder, unspecified hyperactivity presence [facility] [place] [facility] Diagnosis Anxiety with depression [facility] [place] [facility]* Diagnosis Attention deficit disorder, unspecified hyperactivity presence [facility] [place] [facility] Diagnosis Attention deficit disorder, unspecified hyperactivity presence [facility] [place] [facility] Diagnosis Attention deficit disorder, unspecified hyperactivity presence [facility] [place] [facility]* Diagnosis Seasonal allergic rhinitis, unspecified trigger [facility] [place] [facility] Diagnosis Attention deficit disorder, unspecified hyperactivity presence [facility] Anxiety with depression- Primary Encounter for immunization Need for other specified prophylactic vaccination against single bacterial disease Attention deficit disorder, unspecified hyperactivity presence [facility] [place] [facility] Diagnosis Attention deficit disorder, unspecified hyperactivity presence [facility] [place] [facility]* Diagnosis Allergic conjunctivitis of both eyes Other chronic allergic conjunctivitis [facility] [place] [facility] Diagnosis Attention deficit hyperactivity disorder (ADHD), unspecified ADHD type- Primary Binge eating Polyphagia [facility] [place] [facility]* Diagnosis Moderate episode of recurrent major depressive disorder (HCC) [facility] [place] [facility]* Diagnosis Anxiety with depression- Primary PMS (premenstrual syndrome) Premenstrual tension syndromes Plantar fasciitis Plantar fascial fibromatosis [facility] [place] [facility] Diagnosis Retinoschisis, right eye- Primary Retinoschisis, unspecified [facility] [place] [facility] Diagnosis Seasonal allergic rhinitis, unspecified trigger Retinoschisis, right eye- Primary Retinoschisis, unspecified [facility] [place] [facility]* Diagnosis Attention deficit hyperactivity disorder (ADHD), unspecified ADHD type Retinoschisis, right eye- Primary Retinoschisis, unspecified [facility] [place] [facility]* Diagnosis Moderate episode of recurrent major depressive disorder (HCC) [facility] [place] [facility] Diagnosis Anxiety with depression- Primary Attention deficit hyperactivity disorder (ADHD), unspecified ADHD type Binge eating Polyphagia Anal warts Condyloma acuminatum [facility] [place] [facility] Diagnosis Anal warts Condyloma acuminatum [facility] [place] [facility] Diagnosis Anal warts- Primary Condyloma acuminatum [facility] [place] [facility] Diagnosis Inflamed seborrheic keratosis- Primary Anal warts Condyloma acuminatum Seborrheic keratosis Other seborrheic keratosis Pruritus Unspecified pruritic disorder Skin tags, multiple acquired Condyloma acuminata Condyloma acuminatum [facility] [place] [facility]* Diagnosis Anal warts Condyloma acuminatum [facility] [place] [facility] Diagnosis Attention deficit hyperactivity disorder (ADHD), unspecified ADHD type [facility] [place] [facility]* Diagnosis Anal warts- Primary Condyloma acuminatum Postoperative state Other postprocedural status [facility] [place] [facility] Diagnosis OPENED IN ERROR- Primary To allow closing an encounter opened in error (used in SmartSet) documented in this encounter [facility] note* Diagnosis Postoperative state- Primary Other postprocedural status documented in this encounter [facility] note* Diagnosis Postoperative state- Primary Other postprocedural status documented in this encounter [facility] note* Diagnosis Anal or rectal pain- Primary Postoperative state Other postprocedural status documented in this encounter [facility] note* Diagnosis Anxiety with depression documented in this encounter [facility] note* Diagnosis Obesity, Class II, BMI 35-39.9- Primary Obesity, unspecified Screening for diabetes mellitus Screening cholesterol level Screening for lipoid disorders Gastroesophageal reflux disease, unspecified whether esophagitis present documented in this encounter [facility] Summary Purpose Family History No Family History Records FoundNo Family History Records FoundNo Family History Records FoundNo Family History Records FoundNo Family History Records FoundNo Family History Records FoundNo Family History Records Found Advance Directives Documents on File Type Date Recorded Patient Slag Wheeler Expl anation Advance Directive(s) 08/04/2019 5:35 PM Advance Directive(s) 07/11/2019 8:41 AM Advance Directive(s) 10/18/2018 9:28 AM Reason for Referral Specialty Diagnoses / Procedures Referred By Contac t Referred To Contact Podiatry Diagnoses Plantar fasciitis Procedures CONSULT TO PODIATRY OFFICE/OUTPATIENT [facility] 60-[place] [address] [place] [address] Referral ID Status Reason Start Date Expiration Date Visits Requested Visits Authorized [id number] Pending Review PCP Requested Referral 01/31/2023 01/31/2024 1 1 Specialty Diagnoses / Procedures Referred By Contac t Referred To Contact Dermatology Diagnoses Anal warts Procedures CONSULT TO DERMATOLOGY OFFICE/OUTPATIENT [facility] 60-74 MINUTES [place] [address] [place] [address] Referral ID Status Reason Start Date Expiration Date Visits Requested Visits Authorized [id number] Pending Review PCP Requested Referral 05/13/2023 04/28/2024 1 1 Specialty Diagnoses / Procedures Referred By Contac t Referred To Contact Colon and Rectal Surgery Diagnoses Anal warts Procedures CONSULT TO COLO-RECTAL SURGERY OFFICE/OUTPATIENT [facility] 60-74 MINUTES Simona Espinosa MD [address] [place] [address] [place] [address] Referral ID Status Reason Start Date Expiration Date Visits Requested Visits Authorized [id number] Pending Review PCP Requested Referral 05/30/2023 05/29/2024 1 1 Additional Source Comments INFORMATION SOURCE (unrecogn ized section and content) DATE CREATED AUTHOR AUTHOR'S ORGANIZ ATION 02/25/2018 [facility] DATE CREATED AUTHOR AUTHOR'S ORGANIZ ATION 02/26/2018 [facility] DATE CREATED AUTHOR AUTHOR'S ORGANIZ ATION 08/07/2019 [facility] DATE CREATED AUTHOR AUTHOR'S ORGANIZ ATION 12/03/2020 [facility] DATE CREATED AUTHOR AUTHOR'S ORGANIZ ATION 08/05/2023 [facility] DATE CREATED AUTHOR AUTHOR'S ORGANIZ ATION 08/06/2023 [facility] Source Comments (unrecognize d section and content) In the event this informatio n is protected by the Federal Confidentiality of Alcohol and Drug Abuse Patient Records regulations: The Federal rules restrict any use of the information to criminally investigate or prosecute any alcohol or drug abuse patient.[facility] the event this information is protected by the Federal Confidentiality of Alcohol and Drug Abuse Patient Records regulations: The Federal rules restrict any use of the information to criminally investigate or prosecute any alcohol or drug abuse patient.[facility] the event this information is protected by the Federal Confidentiality of Alcohol and Drug Abuse Patient Records regulations: The Federal rules restrict any use of the information to criminally investigate or prosecute any alcohol or drug abuse patient.[facility] HospitalIn the event this information is protected by the Federal Confidentiality of Alcohol and Drug Abuse Patient Records regulations: The Federal rules restrict any use of the information to criminally investigate or prosecute any alcohol or drug abuse patient.[facility] HospitalIn the event this information is protected by the Federal Confidentiality of Alcohol and Drug Abuse Patient Records regulations: The Federal rules restrict any use of the information to criminally investigate or prosecute any alcohol or drug abuse patient.[facility] HospitalIn the event this information is protected by the Federal Confidentiality of Alcohol and Drug Abuse Patient Records regulations: The Federal rules restrict any use of the information to criminally investigate or prosecute any alcohol or drug abuse patient.[facility] HospitalIn the event this information is protected by the Federal Confidentiality of Alcohol and Drug Abuse Patient Records regulations: The Federal rules restrict any use of the information to criminally investigate or prosecute any alcohol or drug abuse patient.[facility] HospitalIn the event this information is protected by the Federal Confidentiality of Alcohol and Drug Abuse Patient Records regulations: The Federal rules restrict any use of the information to criminally investigate or prosecute any alcohol or drug abuse patient.[facility] HospitalIn the event this information is protected by the Federal Confidentiality of Alcohol and Drug Abuse Patient Records regulations: The Federal rules restrict any use of the information to criminally investigate or prosecute any alcohol or drug abuse patient.[facility] HospitalIn the event this information is protected by the Federal Confidentiality of Alcohol and Drug Abuse Patient Records regulations: The Federal rules restrict any use of the information to criminally investigate or prosecute any alcohol or drug abuse patient.[facility] HospitalIn the event this information is protected by the Federal Confidentiality of Alcohol and Drug Abuse Patient Records regulations: The Federal rules restrict any use of the information to criminally investigate or prosecute any alcohol or drug abuse patient.[facility] HospitalIn the event this information is protected by the Federal Confidentiality of Alcohol and Drug Abuse Patient Records regulations: The Federal rules restrict any use of the information to criminally investigate or prosecute any alcohol or drug abuse patient.[facility] HospitalIn the event this information is protected by the Federal Confidentiality of Alcohol and Drug Abuse Patient Records regulations: The Federal rules restrict any use of the information to criminally investigate or prosecute any alcohol or drug abuse patient.[facility] HospitalIn the event this information is protected by the Federal Confidentiality of Alcohol and Drug Abuse Patient Records regulations: The Federal rules restrict any use of the information to criminally investigate or prosecute any alcohol or drug abuse patient.[facility] HospitalIn the event this information is protected by the Federal Confidentiality of Alcohol and Drug Abuse Patient Records regulations: The Federal rules restrict any use of the information to criminally investigate or prosecute any alcohol or drug abuse patient.[facility] HospitalIn the event this information is protected by the Federal Confidentiality of Alcohol and Drug Abuse Patient Records regulations: The Federal rules restrict any use of the information to criminally investigate or prosecute any alcohol or drug abuse patient.[facility] HospitalIn the event this information is protected by the Federal Confidentiality of Alcohol and Drug Abuse Patient Records regulations: The Federal rules restrict any use of the information to criminally investigate or prosecute any alcohol or drug abuse patient.[facility] HospitalIn the event this information is protected by the Federal Confidentiality of Alcohol and Drug Abuse Patient Records regulations: The Federal rules restrict any use of the information to criminally investigate or prosecute any alcohol or drug abuse patient.[facility] HospitalIn the event this information is protected by the Federal Confidentiality of Alcohol and Drug Abuse Patient Records regulations: The Federal rules restrict any use of the information to criminally investigate or prosecute any alcohol or drug abuse patient.[facility] HospitalIn the event this information is protected by the Federal Confidentiality of Alcohol and Drug Abuse Patient Records regulations: The Federal rules restrict any use of the information to criminally investigate or prosecute any alcohol or drug abuse patient.[facility] HospitalIn the event this information is protected by the Federal Confidentiality of Alcohol and Drug Abuse Patient Records regulations: The Federal rules restrict any use of the information to criminally investigate or prosecute any alcohol or drug abuse patient.[facility] HospitalIn the event this information is protected by the Federal Confidentiality of Alcohol and Drug Abuse Patient Records regulations: The Federal rules restrict any use of the information to criminally investigate or prosecute any alcohol or drug abuse patient.[facility] HospitalIn the event this information is protected by the Federal Confidentiality of Alcohol and Drug Abuse Patient Records regulations: The Federal rules restrict any use of the information to criminally investigate or prosecute any alcohol or drug abuse patient.[facility] HospitalIn the event this information is protected by the Federal Confidentiality of Alcohol and Drug Abuse Patient Records regulations: The Federal rules restrict any use of the information to criminally investigate or prosecute any alcohol or drug abuse patient.[facility] HospitalIn the event this information is protected by the Federal Confidentiality of Alcohol and Drug Abuse Patient Records regulations: The Federal rules restrict any use of the information to criminally investigate or prosecute any alcohol or drug abuse patient.[facility] HospitalIn the event this information is protected by the Federal Confidentiality of Alcohol and Drug Abuse Patient Records regulations: The Federal rules restrict any use of the information to criminally investigate or prosecute any alcohol or drug abuse patient.[facility] HospitalIn the event this information is protected by the Federal Confidentiality of Alcohol and Drug Abuse Patient Records regulations: The Federal rules restrict any use of the information to criminally investigate or prosecute any alcohol or drug abuse patient.[facility] HospitalIn the event this information is protected by the Federal Confidentiality of Alcohol and Drug Abuse Patient Records regulations: The Federal rules restrict any use of the information to criminally investigate or prosecute any alcohol or drug abuse patient.[facility] HospitalIn the event this information is protected by the Federal Confidentiality of Alcohol and Drug Abuse Patient Records regulations: The Federal rules restrict any use of the information to criminally investigate or prosecute any alcohol or drug abuse patient.[facility] HospitalIn the event this information is protected by the Federal Confidentiality of Alcohol and Drug Abuse Patient Records regulations: The Federal rules restrict any use of the information to criminally investigate or prosecute any alcohol or drug abuse patient.[facility] HospitalIn the event this information is protected by the Federal Confidentiality of Alcohol and Drug Abuse Patient Records regulations: The Federal rules restrict any use of the information to criminally investigate or prosecute any alcohol or drug abuse patient.[facility] HospitalIn the event this information is protected by the Federal Confidentiality of Alcohol and Drug Abuse Patient Records regulations: The Federal rules restrict any use of the information to criminally investigate or prosecute any alcohol or drug abuse patient.[facility] HospitalIn the event this information is protected by the Federal Confidentiality of Alcohol and Drug Abuse Patient Records regulations: The Federal rules restrict any use of the information to criminally investigate or prosecute any alcohol or drug abuse patient.[facility] HospitalIn the event this information is protected by the Federal Confidentiality of Alcohol and Drug Abuse Patient Records regulations: The Federal rules restrict any use of the information to criminally investigate or prosecute any alcohol or drug abuse patient.[facility] HospitalIn the event this information is protected by the Federal Confidentiality of Alcohol and Drug Abuse Patient Records regulations: The Federal rules restrict any use of the information to criminally investigate or prosecute any alcohol or drug abuse patient.[facility] HospitalIn the event this information is protected by the Federal Confidentiality of Alcohol and Drug Abuse Patient Records regulations: The Federal rules restrict any use of the information to criminally investigate or prosecute any alcohol or drug abuse patient.[facility] HospitalIn the event this information is protected by the Federal Confidentiality of Alcohol and Drug Abuse Patient Records regulations: The Federal rules restrict any use of the information to criminally investigate or prosecute any alcohol or drug abuse patient.[facility] HospitalIn the event this information is protected by the Federal Confidentiality of Alcohol and Drug Abuse Patient Records regulations: The Federal rules restrict any use of the information to criminally investigate or prosecute any alcohol or drug abuse patient.[facility] HospitalIn the event this information is protected by the Federal Confidentiality of Alcohol and Drug Abuse Patient Records regulations: The Federal rules restrict any use of the information to criminally investigate or prosecute any alcohol or drug abuse patient.[facility] HospitalIn the event this information is protected by the Federal Confidentiality of Alcohol and Drug Abuse Patient Records regulations: The Federal rules restrict any use of the information to criminally investigate or prosecute any alcohol or drug abuse patient.[facility] HospitalIn the event this information is protected by the Federal Confidentiality of Alcohol and Drug Abuse Patient Records regulations: The Federal rules restrict any use of the information to criminally investigate or prosecute any alcohol or drug abuse patient.[facility] HospitalIn the event this information is protected by the Federal Confidentiality of Alcohol and Drug Abuse Patient Records regulations: The Federal rules restrict any use of the information to criminally investigate or prosecute any alcohol or drug abuse patient.[facility] HospitalIn the event this information is protected by the Federal Confidentiality of Alcohol and Drug Abuse Patient Records regulations: The Federal rules restrict any use of the information to criminally investigate or prosecute any alcohol or drug abuse patient.[facility] HospitalIn the event this information is protected by the Federal Confidentiality of Alcohol and Drug Abuse Patient Records regulations: The Federal rules restrict any use of the information to criminally investigate or prosecute any alcohol or drug abuse patient.[facility] HospitalIn the event this information is protected by the Federal Confidentiality of Alcohol and Drug Abuse Patient Records regulations: The Federal rules restrict any use of the information to criminally investigate or prosecute any alcohol or drug abuse patient.[facility] HospitalIn the event this information is protected by the Federal Confidentiality of Alcohol and Drug Abuse Patient Records regulations: The Federal rules restrict any use of the information to criminally investigate or prosecute any alcohol or drug abuse patient.[facility] HospitalIn the event this information is protected by the Federal Confidentiality of Alcohol and Drug Abuse Patient Records regulations: The Federal rules restrict any use of the information to criminally investigate or prosecute any alcohol or drug abuse patient.[facility] Reason for Visit (unrecogniz ed section and content) Reason Onset Date Comments Refill Request 12/24/2021 Reason Onset Date Comments Refill Request 12/25/2021 Reason Onset Date Comments Refill Request 01/22/2022 Reason Comments Anxiety Depression Reason Onset Date Comments Refill Request 02/20/2022 Reason Onset Date Comments Refill Request 03/21/2022 Reason Onset Date Comments Refill Request 05/08/2022 Reason Onset Date Comments Refill Request 06/18/2022 Reason Onset Date Comments Refill Request 07/10/2022 Reason Onset Date Comments Refill Request 07/19/2022 Reason Onset Date Comments Refill Request 08/17/2022 Reason Comments Medication Request Reason Onset Date Comments Refill Request 09/18/2022 Reason Onset Date Comments Refill Request 10/19/2022 Reason Onset Date Comments Refill Request 10/22/2022 Reason Onset Date Comments Refill Request 10/26/2022 Reason Comments Behavioral Problem Reason Comments Refill Request Reason Comments Results Pain feet Reason Comments Retinal Detachment Evaluation Reason Onset Date Comments Refill Request 03/18/2023 Reason Onset Date Comments Refill Request 03/19/2023 Reason Comments Follow Up Reason Comments Behavioral Health/Social Work Reason Comments Med Change Request Reason Comments Derm Problem Specialty Diagnoses / Procedures Referred By Contac t Referred To Contact Dermatology Diagnoses Anal warts Procedures CONSULT TO DERMATOLOGY OFFICE/OUTPATIENT [facility] 60-74 MINUTES [place] [address] [place] [address] Referral ID Status Reason Start Date Expiration Date Visits Requested Visits Authorized [id number] Pending Review PCP Requested Referral 05/13/2023 04/28/2024 1 1 Reason Comments Consult Specialty Diagnoses / Procedures Referred By Contac t Referred To Contact Colon and Rectal Surgery Diagnoses Anal warts Procedures CONSULT TO COLO-RECTAL SURGERY OFFICE/OUTPATIENT [facility] 60-74 MINUTES Simona Espinosa MD [address] [place] [address] [place] [address] Referral ID Status Reason Start Date Expiration Date Visits Requested Visits Authorized [id number] Pending Review PCP Requested Referral 05/30/2023 05/29/2024 1 1 Reason Onset Date Comments Refill Request 07/28/2023 Reason Comments GERD Weight Problem Reason Onset Date Comments Refill Request 10/15/2023 Care Teams (unrecognized sec tion and content) Variety Saw Operator Relationship Specialty [place] [address] [place] [address] PCP - General Family Practice 01/01/13 Variety Saw Operator Relationship Specialty [place] [address] [place] [address] PCP - General Family Practice 01/01/13 Variety Saw Operator Relationship Specialty [place] [address] [place] [address] PCP - General Family Practice 01/01/13 Variety Saw Operator Relationship Specialty Start Date [place] [address] [place] [address] PCP - General Family Practice 01/01/13 Variety Saw Operator Relationship Specialty [place] [address] [place] [address] PCP - General Family Practice 01/01/13 Variety Saw Operator Relationship Specialty [place] [address] [place] [address] PCP - General Family Medicine 01/01/13 Variety Saw Operator Relationship Specialty [place] [address] [place] [address] PCP - General Family Medicine 01/01/13 Variety Saw Operator Relationship Specialty [place] [address] [place] [address] PCP - General Family Medicine 01/01/13 Variety Saw Operator Relationship Specialty [place] [address] [place] [address] PCP - General Family Medicine 01/01/13 Variety Saw Operator Relationship Specialty [place] [address] [place] [address] PCP - General Family Medicine 01/01/13 Variety Saw Operator Relationship Specialty [place] [address] [place] [address] PCP - General Family Medicine 01/01/13 Variety Saw Operator Relationship Specialty [place] [address] [place] [address] PCP - General Family Medicine 01/01/13 Variety Saw Operator Relationship Specialty [place] [address] [place] [address] PCP - General Family Medicine 01/01/13 Variety Saw Operator Relationship Specialty [place] [address] [place] [address] PCP - General Family Medicine 01/01/13 Variety Saw Operator Relationship Specialty [place] [address] [place] [address] PCP - General Family Medicine 01/01/13 Variety Saw Operator Relationship Specialty [place] [address] [place] [address] PCP - General Family Medicine 01/01/13 Variety Saw Operator Relationship Specialty [place] [address] [place] [address] PCP - General Family Medicine 01/01/13 Variety Saw Operator Relationship Specialty Start Date [place] [address] [place] [address] PCP - General Family Medicine 01/01/13 Variety Saw Operator Relationship Specialty [place] [address] [place] [address] PCP - General Family Medicine 01/01/13 Variety Saw Operator Relationship Specialty [place] [address] [place] [address] PCP - General Family Medicine 01/01/13 Variety Saw Operator Relationship Specialty [place] [address] [place] [address] PCP - General Family Medicine 01/01/13 Variety Saw Operator Relationship Specialty Start Date End Date Pattie Hayes [address] [place] [address] PCP - General Family Medicine 01/01/13 Variety Saw Operator Relationship Specialty Start Date End Date Pattie Hayes [address] [place] [address] PCP - General Family Medicine 01/01/13 Variety Saw Operator Relationship Specialty Start Date End Date Pattie Hayes [address] [place] [address] PCP - General Family Medicine 01/01/13 Variety Saw Operator Relationship Specialty Start Date End Date Pattie Hayes [address] [place] [address] PCP - General Family Medicine 01/01/13 Variety Saw Operator Relationship Specialty Start Date End Date Pattie Hayes [address] [place] [address] PCP - General Family Medicine 01/01/13 Variety Saw Operator Relationship Specialty Start Date End Date Pattie Hayes [address] [place] [address] PCP - General Family Medicine 01/01/13 Variety Saw Operator Relationship Specialty [place] [address] [place] [address] PCP - General Family Medicine 01/01/13 Variety Saw Operator Relationship Specialty Start [place] [address] [place] [address] PCP - General [facility] Medicine 01/01/13 Variety Saw Operator Relationship Specialty Start [place] [address] [place] [address] PCP - General [facility] 01/01/13 Variety Saw Operator Relationship Specialty [place] [address] [place] [address] PCP - General Family Medicine 01/01/13 Variety Saw Operator Relationship Specialty [place] [address] [place] [address] PCP - General Family Medicine 01/01/13 FOR RECORDS PERTAINING TO PATIENTS WHO ARE OR HAVE BEEN ENROLLED IN A CHEMICAL DEPENDENCY/SUBSTANCEABUSE PROGRAM, SOME INFORMATION MAY BE OMITTED. This clinical summary was aggregated from multiple sources. Caution should be exercised in using it in the provision of clinical care. This summary normalizes information from multiple sources, and as a consequence, information in this document may materially change the coding, format and clinical context of patient data. In addition, data may be omitted in some cases. CLINICAL DECISIONS SHOULD BE BASED ON THE PRIMARY CLINICAL RECORDS. [facility] [employer] [facility]. provides no warranty or guarantee of the accuracy or completeness of information in this document.
[2023-11-02 15:45] LABS: Absolute Lymphocyte Count 3.13 X10^3/uL (0.83-4.51); Absolute Neutrophil Count 3.6 X10^3/uL (2.0-7.7); Basophil# 0.03 X10^3/uL; Basophil% 0.4 % (0-1); Eosinophils% 2.6 % (0-5); Hematocrit 36.2 % (37-47); Hemoglobin 12.5 g/dL (12.0-15.0); Lymphocyte # 3.13 X10^3/ul (0.83-4.51); Lymphocyte % 41.1 % (19-41); Mean Corp Hgb Conc 34.5 g/dL (32-36); Mean Corpuscular Hgb 29.8 pg (27.0-32.0); Mean Corpuscular Volume 86.2 fL (81-99); Mean Platelet Vol. 9.6 fl (6.2-12.0); Monocyte# 0.61 X10^3/uL; NRBC Flagged by Analyzer 0 % (0-5); Neutrophil # 3.62 X10^3/uL (2.7-7.7); Neutrophil % 47.5 % (47-70); Platelet Count 321 K/mm3 (150-450); RBC Distribution Width CV 13.8 % (11.6-14.6); RBC Distribution Width SD 43.4 fl (35.1-43.9); White Blood Count 7.6 K/mm3 (4.4-11.0)
[2023-11-02] MEDS: Meclizine HCl 25 MG Tablet PO (15:47)
[2023-11-02 16:16] LABS: Anion Gap 4 (5-15); BUN 8 mg/dL (7-18); BUN/Creat Ratio 10.7 RATIO (10-20); Calcium,Total 9.3 mg/dL (8.5-10.1); Chloride 112 mmol/L (98-107); Creatinine, Serum 0.74 mg/dL (0.55-1.02); EST Glomerular Filtration Rate 91 mL/min (>60); Est Glom Filt Rate - Afr Amer 110 mL/min (>60); Estimated Creatinine Clearance 108.91 ml/min; Glucose 98 mg/dL (74-106); Potassium 3.4 mmol/L (3.5-5.1); Sodium Level 139 mmol/L (136-145)
[2023-11-02 17:02] VITALS: BP 140/78; PULSE 75; RESP 16; TEMP 36.1; O2SAT 97
== END 2023-11-02 17:40 | disposition home or self-care (01) ==
PROVIDERS: Emergency Provider Emergency Medicine; Visit Provider Emergency Medicine
DX: R42 Dizziness and giddiness (principal); Z79.899 Other long term (current) drug therapy; F17.210 Nicotine dependence, cigarettes, uncomplicated
CPT/HCPCS: 70450; 80048; 85025; 99283; A4216

== ENCOUNTER 2024-07-12 12:20 | Emergency (ER) | payer BC, SELFPAY ==
[2024-07-12 12:21] VITALS: BP 122/68; PULSE 92; RESP 18; TEMP 36.2; O2SAT 100; BMI 24.3
[2024-07-12] MEDS: Ketorolac 30 MG/ML Syringe IM (13:25)
== END 2024-07-12 15:15 | disposition home or self-care (01) ==
PROVIDERS: Emergency Provider Surgery; PCP Family Medicine; Visit Provider Surgery
DX: M62.830 Muscle spasm of back (principal); K50.90 Crohn's disease, unspecified, without complications; R07.89 Other chest pain; R07.82 Intercostal pain; M25.511 Pain in right shoulder; Z79.899 Other long term (current) drug therapy; F17.210 Nicotine dependence, cigarettes, uncomplicated
CPT/HCPCS: 71101; 96372; 99282

== ENCOUNTER 2025-07-01 20:20 | Inpatient (IN) | payer BC, SELFPAY ==
[2025-07-01 20:21] VITALS: BP 90/49; PULSE 74; RESP 18; TEMP 36.5; O2SAT 98; BMI 20.9
--- NOTE | 2025-07-01 20:23 | EKG12_ITS ---
Test Reason : [id number]
--- NOTE | 2025-07-01 20:25 | EX.ED.DYSGE1 ---
HPI History of Present Illness Chief Complaint: Overdose Detail of Chief Complaint: Overdose with different locations. Informant: patient (Currently patient's unable to give much of a history due to her altered level of conscious.) and EMS Onset/Context/Timing Onset: Today Context: Gradual Onset Timing: Continuous Current Severity: Severe Maximum Severity: Severe Narrative Narrative: 45-year-old female history of depression and alcohol use. Reportedly her and her are having marital problems. And she overdosed tonight on hydroxyzine. Reportedly 30 tablets of either 25 or 50 mg. This occurred around 530 to 7 PM. Initially squad was called in the house. She was allowed to remain in dialysis and they were called back a second time she was unresponsive and they brought her in. Patient currently is unable to give any history. History is from the paramedics. Prior similar symptoms: No Recent Illness/Hospitalization: No PFSH PFS Medical History Vertigo GERD (gastroesophageal reflux disease) Acute Crohn's disease Retinal arteriolar sclerosis Home Medications ?Medication ?Instructions ?Recorded ?Last Taken ?Type hydrocodone-acetaminophen 5-325mg 1 tab PO Q6H PRN PRN Pain ##12 06/02/15 Unknown Rx 5mg-325mg Omeprazole [Prilosec] 40 mg PO DAILY 07/25/15 Unknown History dextroamphetamine-amphetamine 30 30 mg PO DAILY 07/25/15 Unknown History mg tablet (Adderall) duloxetine 30 mg capsule,delayed 30 mg PO DAILY 07/25/15 Unknown History release etodolac 300 mg capsule 300 mg PO TIDCM ##30 07/25/15 Unknown Rx penicillin V potassium 500 mg 500 mg PO 4X/DAY #40 tabs 07/25/15 Unknown Rx tablet meclizine 25 mg chewable tablet 25 mg PO TID #14 tabs 11/02/23 Unknown Rx (Antivert) cyclobenzaprine 5 mg tablet 5 mg PO TID PRN muscle spasm 3 07/12/24 Unknown Rx days #9 tabs Allergy/AdvReac Type Severity Reaction Status Date / Time latex AdvReac Unknown Verified 07/01/25 20:30 Social History Smoking Status: Current every day smoker tobacco type: cigarettes ROS ROS ED ROS Narrative Unable to obtain due to the patient's mental status. EXAM Physical Exam Narrative Exam Narrative: 45-year-old female blood pressure 90/49. Heart rate 74. Pulse ox 90% on room air. Minimally responsive. Not answering questions. Brought in by squad. H EENT exam appears Ramming Actilite. Moist mucous membranes. No trauma to face or scalp. Neck nontender no lymphadenopathy. Back nontender. Lungs clear to auscultation bilaterally. Heart regular rhythm rate about 75 no murmur. Chest wall ribs nontender. No signs of trauma. Abdomen soft nondistended normal bowel sounds without peritoneal signs. No distention. Pelvic girdle intact. Moving all 4 extremities. Nontender no edema. Neurologically she opens her eyes. She is not responding to any questions or following commands. She is awake however. She does appear to be stuporous and may be intoxicated. Const Vital Signs: 07/01/25 20:21 07/01/25 21:15 07/01/25 22:14 Temperature 97.7 F L Temperature Source Temporal Pulse Rate 74 63 64 Respiratory Rate 18 11 L 12 Blood Pressure 90/49 L 77/53 L 84/43 L Blood Pressure Mean 62 61 56 Pulse Ox 98 100 100 Oxygen Delivery Method Room Air Room Air MDM MDM MDM Narrative Medical decision making narrative: 45-year-old female history of depression reportedly took 30 either 25 or 50 mg hydroxyzine around 5-7 o'clock tonight. [place] alert called she had minimal responsiveness they brought her in. Currently is hypotensive should be given 2 large-bore IVs IV fluid bolus. And an overdose workup will be pursued. Show ED mental health. Most likely she will need to be admitted tonight medically cleared and transferred to a psychiatric facility for suicide attempt. Multiple repeat exams most recent 1 10:38 PM. Patient is awake alert sitting upright in bed. Carrying on a conversation. She is in no distress. Blood pressure is read in the 70s and 80s but heart rates in the 60s. She has a bounding radial pulse. She has no signs of hypotension clinically. It will be repeated manually in the other arm. I have the hospitalist on page for admission. She will also be given a second liter of fluid. I also spoke to poison control. Tip with medication she [id number] C hypertension. There is no other history of any other overdose medication. History & Record Review Discussion w/independent historian: EMS personnel and Patient Additional record(s) reviewed:: Prior outpatient record, Prior ED visit and Prior labs Lab Data Attestation: I reviewed the patient's lab results. Lab results narrative: CBC shows a white count of 9. H&H of 10.2 and 30. Platelets 261. Electrolytes show potassium of 3.2. Gap of 12. Normal BUN of 11 and creatinine 0.85. Liver enzymes are unremarkable. Lactic acid is 2.2. Glucose is 71. Serum test negative. Talk screen negative. Alcohol is elevated at 119. Labs: Laboratory Results - last 24 hr 07/01/25 07/01/25 07/01/25 20:35 20:42 21:57 WBC 9.2 RBC 3.35 L Hgb 10.2 L Hct 30.0 L MCV 89.6 MCH 30.4 MCHC 34.0 RDW Std Deviation 46.9 H RDW Coeff of Ana 14.5 Plt Count 261 MPV 8.8 Immature Gran % (Auto) 0.300 Neut % (Auto) 53.8 Lymph % (Auto) 35.1 [place] % (Auto) 8.1 Eos % (Auto) 2.2 Baso % (Auto) 0.5 Absolute Neuts (auto) 5.0 Absolute Lymphs (auto) 3.24 Nucleated RBC % 0 Sodium 136 Potassium 3.2 L Chloride 105 Carbon Dioxide 18.2 L Anion Gap 12 BUN 11 Creatinine 0.85 Estim Creat Clear Calc 75.90 Est GFR (MDRD) Non-Af 87 BUN/Creatinine Ratio 13.3 Glucose 71 Lactic Acid 2.2 H* Calcium 8.6 Total Bilirubin 0.16 AST 25 ALT 20 Alkaline Phosphatase 92 Total Protein 6.4 Albumin 3.9 Globulin 2.5 Albumin/Globulin Ratio 1.6 Serum , Qual NEGATIVE Urine Opiates Screen NEGATIVE U Buprenorphine Qual NEGATIVE Ur Oxycodone Screen NEGATIVE Urine Methadone Screen NEGATIVE Urine Fentanyl Screen NEGATIVE Ur Barbiturates Screen NEGATIVE Ur Phencyclidine Scrn NEGATIVE Ur Amphetamines Screen NEGATIVE U Benzodiazepines Scrn NEGATIVE Urine Cocaine Screen NEGATIVE U Cannabinoids Screen NEGATIVE Ethyl Alcohol 119.0 H POC Glucose 69 L 89 Radiography Chest X-Ray - ED: Read by ED Physician, Read by Radiologist, Normal, Heart, Lungs, Mediastinum, Bony Structures, No Acute Disease and Chronic Changes Diagnostic Testing: Clinical Impression(s) from Imaging Studies Chest X-Ray 07/01/25 20:50 IMPRESSION: No acute cardiopulmonary disease. Reading Location: [facility] Chest x-ray, portable, single view interpreted by myself and radiologist shows no acute abnormality. Normal. Silhouette. Normal lung rodriguez. No effusions no pneumonia. No cardiomegaly. Rhythm Strip Rhythm Strip: Sinus Rhythm Rate: 61 Ectopy: None EKG Initial EKG: Attestation: I personally reviewed and interpreted this EKG as follows: Interpretation: Sinus Rhythm and No Acute Injury Pattern Comments: Normal sinus rhythm rate of 61 no acute signs of VA or ischemia. Critical Care Time Critical Care Time: Yes Critical care time (excluding procedures): 30-74 minutes, Including time spent:, Discussing w/Patient &/or Family/Chicken And Fish Cleaner, Discussing w/Consultants, Arranging Admission or Transfer, Performing Direct Patient Care at Bedside and - (35 minutes.) Discharge Plan Dx/Rx/DC Orders Clinical Impression: Overdose, Depression, Suicidal thoughts, Acute hypotension Disposition Disposition: Acute Care [facility]
[2025-07-01] MEDS: 0.9% Normal Saline (1000mL) 1,000 ML 999 ML IV ×2 (20:49→22:40)
--- NOTE | 2025-07-01 20:50 | RAD_ITS ---
PROCEDURE: RAD/Chest 1 View (Portable)
[2025-07-01 21:09] LABS: Hematocrit 30.0 % (37-47); Hemoglobin 10.2 g/dL (12.0-15.0); Immature Granulocytes Count 0.030 X10^3/uL (0.0-0.0); Mean Corp Hgb Conc 34.0 g/dL (32-36); Mean Corpuscular Volume 89.6 fL (81-99); Mean Platelet Vol. 8.8 fl (6.2-12.0); NRBC Flagged by Analyzer 0 % (0-5); Platelet Count 261 K/mm3 (150-450); RBC Distribution Width CV 14.5 % (11.6-14.6); RBC Distribution Width SD 46.9 fl (35.1-43.9); Red Blood Count 3.35 M/mm3 (4.2-5.4); White Blood Count 9.2 K/mm3 (4.4-11.0)
[2025-07-01 21:15] VITALS: BP 77/53; PULSE 63; RESP 11; O2SAT 100
[2025-07-01 21:47] LABS: AST(SGOT) 25 U/L (<=31); Alanine Aminotransfer ALT/SGPT 20 U/L (<=34); Albumin, Serum 3.9 g/dL (3.5-5.0); Alkaline Phosphatase 92 U/L (35-104); Anion Gap 12 (5-15); BUN 11 mg/dL (4-19); BUN/Creat Ratio 13.3 RATIO (10-20); Calcium,Total 8.6 mg/dL (7.6-11.0); Carbon Dioxide 18.2 mmol/L (21.0-32.0); Chloride 105 mmol/L (98-108); Estimated Creatinine Clearance 75.90 ml/min (50-250); Globulin 2.5 g/dL (2.2-4.2); Glucose 71 mg/dL (70-99); Potassium 3.2 mmol/L (3.3-5.1)
[2025-07-01 22:00] LABS: Internal QC Validated? YES +Cl - CLEAR BKGD
[2025-07-01 22:02] LABS: Alcohol, Blood (Medical)-Serum 119.0 mg/dL (<=10.0)
[2025-07-01 22:02] LABS: Barbiturate Urine NEGATIVE (< 200 ng/mL); Benzodiazepine Urine NEGATIVE (< 200 ng/mL); PCP Urine NEGATIVE (< 25 ng/mL); THC Urine NEGATIVE (< 50 ng/mL)
[2025-07-01 22:04] LABS: Pregnancy, Serum, hCG Quali. NEGATIVE Negative; Record Kit Lot#, Serum Preg. 980607
--- NOTE | 2025-07-01 22:04 | CM.ED ---
Social work DESTINY was speaking with Eliud from Crisis about another situation and DESTINY provided Eliud with initial information about this patient. DESTINY read to Eliud what DESTINY knew at this point and stated SW observations from walking past patient's room. Eliud thanked DESTINY for this information and stated talking with Eliud's sanitary landfill supervisor about possibly coming to assess patient tonight in the ED. Lauren Shelton, TAG WRITER, HIGHWAY PATROL COMMANDER
[2025-07-01 22:14] VITALS: BP 84/43; PULSE 64; RESP 12; O2SAT 100
[2025-07-01 22:35] VITALS: BP 78/48; PULSE 62; RESP 10; O2SAT 100
--- NOTE | 2025-07-01 22:57 | PCM.HP.STD ---
HPI - General General Date of Admission: 07/01/25 Date of Service: 07/01/25 Chief Complaint: Overdose, suicide attempt HPI Narrative the patient is a 45 y/o F w/ PMHx: Chart reported Crohn's disease, CKD stage I versus stage II, Anxiety and Depression/mood disorder/ADHD, Tobacco use, Normocytic anemia of unclear chronicity, GERD who presents to the [facility] ED on 07/01/2025 with history of purposeful overdose on hydroxyzine reportedly 30 tablets of potentially 25 versus 50 mg occurring around 6 to 7 PM reportedly secondary to significant depression with suicide intention with recent marital issues ongoing with her spouse initially evaluated by EMS noted to be stable at that time and declined transition however called back to the house noted to be less responsive prompting EMS to bring patient in for evaluation for concern for suicide attempt. Workup in the ED included T97.7, heart rate 74, BP initially 90/49, respiratory rate 18, 98% on room air however patient's blood pressure decreased in the ED down to 77/53 and most recent repeat 78/48, CBC with WC 9.2, Hgb 10.2, MCV 89.6, platelet 261 without marked shift, CMP with potassium 3.2, CO2 18.2, BUN/creatinine 11/0.85, GFR 87, hepatic profile not marked appearing, lactic acid 2.2, serum negative, UDS negative, ethyl alcohol 119. In the ED patient ministered 2 L normal saline. [facility] Medical History Crohn's disease CKD (chronic kidney disease) Tobacco use ADHD Anxiety and depression GERD (gastroesophageal reflux disease) Retinal arteriolar sclerosis Home Medications ?Medication ?Instructions ?Recorded ?Last Taken ?Type atomoxetine 60 mg capsule 60 mg PO DAILY 07/01/25 Unknown History bupropion HCl 150 mg 24 hr tablet, 150 mg PO DAILY 07/01/25 Unknown History extended release lamotrigine 200 mg tablet 400 mg PO BID seizures 07/01/25 Unknown History pantoprazole 40 mg tablet,delayed 40 mg PO DAILY 07/01/25 Unknown History release bupropion HCl 300 mg 24 hr tablet, 300 mg PO DAILY depression 07/02/25 Unknown History extended release fluoxetine 40 mg capsule 80 mg PO DAILY depression 07/02/25 Unknown History Allergy/AdvReac Type Severity Reaction Status Date / Time latex AdvReac Unknown Verified 07/01/25 20:30 Family History Mother Anxiety and depression Father CVA (cerebral vascular accident) Hypertension Surgical History History of bilateral tubal ligation Hx of appendectomy Social History household members: family Smoking Status: Current every day smoker tobacco type: cigarettes Smoking packs per day: 1 Smoking cigarettes per day: 20.0 alcohol intake: current alcohol intake frequency: holidays/special occasions only substance use type: does not use ROS ROS Narrative Admission Review of Systems: CONSTITUTIONAL: No weight loss, fever, chills, + weakness or fatigue. HEENT: Eyes: No visual loss, blurred vision, double vision or yellow sclerae. Ears, Nose, Throat: No hearing loss, sneezing, congestion, runny nose or sore throat. SKIN: No rash or itching, lesions, wounds. CARDIOVASCULAR: No chest pain, chest pressure or chest discomfort, palpitations, edema, orthopnea, syncopal events. RESPIRATORY: No shortness of breath, cough or sputum, wheezing, hemoptysis. GASTROINTESTINAL: No anorexia, nausea, vomiting or diarrhea, abdominal pain, melena, BRBPR. GENITOURINARY: No dysuria, frequency, urgency or retention. NEUROLOGICAL: No headache, dizziness, syncope, paralysis, ataxia, numbness or tingling in the extremities, focal weakness, change in bowel or bladder control, seizure. MUSCULOSKELETAL: No muscle, back pain, joint pain or stiffness. HEMATOLOGIC: + Appearance of potential chronic anemia. No marked easy history of bleeding or bruising. LYMPHATICS: No enlarged nodes. No history of splenectomy. PSYCHIATRIC: + History of anxiety and depression/ADHD, current presentation with overdose with suicide attempt. ENDOCRINOLOGIC: No reports of sweating, cold or heat intolerance. No polyuria or polydipsia. ALLERGIES: No history of asthma, hives, eczema or rhinitis. Vital Signs Vital Signs Vital Signs: 07/01/25 20:21 07/01/25 21:15 07/01/25 22:14 Temperature 97.7 F L Temperature Source Temporal Pulse Rate 74 63 64 Respiratory Rate 18 11 L 12 Blood Pressure 90/49 L 77/53 L 84/43 L Blood Pressure Mean 62 61 56 Pulse Ox 98 100 100 Oxygen Delivery Method Room Air Room Air 07/01/25 22:35 Temperature Temperature Source Pulse Rate 62 Respiratory Rate 10 L Blood Pressure 78/48 L Blood Pressure Mean 58 Pulse Ox 100 Oxygen Delivery Method Room Air Weight Weight: 125 lb 8 oz Body Mass Index (BMI) 20.9 Physical Exam Narrative Physical Examination: General: Awake, alert, oriented to self, place and recent events, she is fatigued appearing but remains cooperative, laying in the ED bed. Skin: Normal color, normal turgor, no icterus, no cyanosis. Except occasional stage ecchymoses, abrasion HEENT: AT/NC, EOMI, PERRLA, dry MM, no carotid bruits or JVD noted. Lungs: Mildly diminished, greater bases, proper effort, no rales, ronchi or wheezing. Heart: Regular rate and rhythm; no gallop, rub audible. Abdomen: Soft, NTTP, ND, mildly hyperactive BS, no HSM. Extremities: No cyanosis, clubbing, or edema. Neurological: Patient awake, alert, oriented as noted, cognitive function appears near baseline intact; pupils equally reactive to light and accommodation, cranial nerves grossly normal, moving all 4 extremities, no focal deficits, strength moderately globally decreased secondary to acute presentation. Psychiatric: Affect appears flat, fatigued, does admit to anxiety depression, current presentation secondary to suicide attempt with overdose. Results Lab / Micro Data 07/01/25 20:35 07/01/25 20:35 Labs: Laboratory Results - last 24 hr 07/01/25 20:35: WBC 9.2, RBC 3.35 L, Hgb 10.2 L, Hct 30.0 L, MCV 89.6, MCH 30.4, MCHC 34.0, RDW Std Deviation 46.9 H, RDW Coeff of Ana 14.5, Plt Count 261, MPV 8.8, Immature Gran % (Auto) 0.300, Neut % (Auto) 53.8, Lymph % (Auto) 35.1, [place] % (Auto) 8.1, Eos % (Auto) 2.2, Baso % (Auto) 0.5, Absolute Neuts (auto) 5.0, Absolute Lymphs (auto) 3.24, Nucleated RBC % 0, Sodium 136, Potassium 3.2 L, Chloride 105, Carbon Dioxide 18.2 L, Anion Gap 12, BUN 11, Creatinine 0.85, Estim Creat Clear Calc 75.90, Est GFR (MDRD) Non-Af 87, BUN/Creatinine Ratio 13.3, Glucose 71, Lactic Acid 2.2 H*, Calcium 8.6, Total Bilirubin 0.16, AST 25, ALT 20, Alkaline Phosphatase 92, Total Protein 6.4, Albumin 3.9, Globulin 2.5, Albumin/Globulin Ratio 1.6, Serum , Qual NEGATIVE, Ethyl Alcohol 119.0 H, POC Glucose 69 L 07/01/25 20:42: Urine Opiates Screen NEGATIVE, U Buprenorphine Qual NEGATIVE, Ur Oxycodone Screen NEGATIVE, Urine Methadone Screen NEGATIVE, Urine Fentanyl Screen NEGATIVE, Ur Barbiturates Screen NEGATIVE, Ur Phencyclidine Scrn NEGATIVE, Ur Amphetamines Screen NEGATIVE, U Benzodiazepines Scrn NEGATIVE, Urine Cocaine Screen NEGATIVE, U Cannabinoids Screen NEGATIVE 07/01/25 21:57: POC Glucose 89 Rhythm Strip Rhythm Strip: Sinus Rhythm Rate: 61 Ectopy: None Imaging Radiology Impression Chest X-Ray 07/01/25 20:50 IMPRESSION: No acute cardiopulmonary disease. Reading Location: [id number] Assessment & Plan Assessment/Plan (1) Acute hypotension: (2) Overdose: PLAN: Plan the patient is a 45 y/o F w/ PMHx: Chart reported Crohn's disease, CKD stage I versus stage II, Anxiety and Depression/mood disorder/ADHD, Tobacco use, Normocytic anemia of unclear chronicity, GERD who presents to the [facility] ED on 07/01/2025 with history of purposeful overdose on hydroxyzine reportedly 30 tablets of potentially 25 versus 50 mg occurring around 6 to 7 PM reportedly secondary to significant depression with suicide intention with recent marital issues ongoing with her spouse initially evaluated by EMS noted to be stable at that time and declined transition however called back to the house noted to be less responsive prompting EMS to bring patient in for evaluation for concern for suicide attempt. #1. 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 Once patient is normotensive in clinic appropriate will also need to rediscuss alcohol intake if she denies alcohol abuse however level significantly elevated upon current presentation. She does admit to significant alcohol intake on current presentation primarily secondary to suicide attempt. #2. Lactic acidosis, mild, suspect secondary to #1: Lactic acid mildly elevated 2.2, will continue to aggressively hydrate and repeat for facility protocol. #3. Hypokalemia: Admission K+ 3.2, magnesium level requested, supplementation given, repeat level in AM. #4. Chronic Kidney Disease Stage I versus stage II, uncertain as not a significant amount of trending labs: Admission BUN/Cr 11/0.85, GFR 87, baseline renal function 0.7-0.8, repeat BMP in AM. #5. Anxiety and depression/mood disorder/ADHD: Complicates presentation as noted above, presenting as noted with suicide attempt/overdose on reportedly hydroxyzine however patient is not currently taking this, will reinitiate patient psychiatric regimen including fluoxetine, lamotrigine, bupropion, atomoxetine. #6. Normocytic anemia, unclear chronicity given no marked lab trending available: Admission hemoglobin 10.2, MCV 89.6, previous comparison 11/02/2023 with hemoglobin at that time 12.5, will repeat CBC in the a.m. and further investigate pending trending. #7. Chart reported Crohn's disease: Noted in chart history, not on any chronic regimen per current list, encourage continued follow-up with gastroenterology as previously arranged. #8. GERD: Will continue patient on PPI. #9. DVT prophylaxis: Lovenox. Charges/Coding Visit Charges Inpatient E&M: 70032 Init Hosp L3
[2025-07-01 23:09] VITALS: BP 78/48; PULSE 62; RESP 12; TEMP 36.7; O2SAT 100
--- NOTE | 2025-07-01 23:40 | ED.RN ---
REPORT CALLED TO ICU NURSE IRMA AT THIS TIME
[2025-07-01 23:43] LABS: Magnesium 2.4 mg/dL (1.5-2.2)
[2025-07-02] VITALS (34 sets, daily range): BP systolic 71–130; BP diastolic 38–97; PULSE 57–76; RESP 16–21; TEMP 36.5–37.3; O2SAT 96–100; BMI 20.6; BMI 20.5
--- NOTE | 2025-07-02 00:11 | NURSING ---
Patient said she already got a flu vaccine this year, maybe a couple months ago but unsure of date. Unable to find date in vaccine history.
[2025-07-02] MEDS: 0.9% Normal Saline (1000mL) 1,000 ML 150 ML IV ×2 (00:50→07:50)
[2025-07-02] MEDS: Potassium Chloride Oral Tablet 20 MEQ 40 MEQ PO (00:50)
[2025-07-02] MEDS: Nicotine (PBKC) 14 MG Patch TD ×2 (00:51→07:58)
[2025-07-02 01:03] LABS: Reflex Lactate? Y
--- NOTE | 2025-07-02 01:19 | NURSING ---
ED called poison control about patient.
[2025-07-02] MEDS: Norepinephrine 8 MG in 0.9% Normal Saline (250mL Bag) 242 ML 9.4 MG CONT INF (02:30)
[2025-07-02] MEDS: 0.9% Saline Lock 10 ML Syringe IV (03:02)
[2025-07-02 03:10] LABS: Hematocrit 25.9 % (37-47); Hemoglobin 8.5 g/dL (12.0-15.0); Immature Granulocytes Count 0.020 X10^3/uL (0.0-0.0); Mean Corp Hgb Conc 32.8 g/dL (32-36); Mean Corpuscular Volume 89.3 fL (81-99); Mean Platelet Vol. 8.9 fl (6.2-12.0); NRBC Flagged by Analyzer 0 % (0-5); Platelet Count 201 K/mm3 (150-450); RBC Distribution Width CV 14.5 % (11.6-14.6); RBC Distribution Width SD 47.4 fl (35.1-43.9); Red Blood Count 2.90 M/mm3 (4.2-5.4); White Blood Count 8.5 K/mm3 (4.4-11.0)
[2025-07-02 03:56] LABS: AST(SGOT) 42 U/L (<=31); Alanine Aminotransfer ALT/SGPT 32 U/L (<=34); Albumin, Serum 3.3 g/dL (3.5-5.0); Alkaline Phosphatase 77 U/L (35-104); Anion Gap 7 (5-15); BUN 12 mg/dL (4-19); BUN/Creat Ratio 15.1 RATIO (10-20); Calcium,Total 7.7 mg/dL (7.6-11.0); Carbon Dioxide 18.7 mmol/L (21.0-32.0); Chloride 110 mmol/L (98-108); Estimated Creatinine Clearance 77.21 ml/min (50-250); Globulin 1.8 g/dL (2.2-4.2); Glucose 91 mg/dL (70-99); Potassium 3.8 mmol/L (3.3-5.1)
--- NOTE | 2025-07-02 06:51 | NURSING ---
Patient more alert this AM. When discussing the events of last night, pt said the hydroxyzine pills that she took were 50 mg tablets. She also drank 8 beers after she took the tablets. Patient educated on effects of medication, how we are monitoring and treating it, that social work will come talk to her once she's medically cleared, and that sitter is at bedside for her safety. Patient expresses understanding of the information and is accepting.
[2025-07-02] MEDS: buPROPion (XL) 150 MG TABLET.XL PO (08:00)
[2025-07-02] MEDS: buPROPion (XL) 300 MG TABLET.XL PO (08:00)
--- NOTE | 2025-07-02 08:39 | EX.PCM.CONCC ---
Assessment & Plan Assessment/Plan (1) Acute hypotension: (2) Overdose: PLAN: Plan RECOMMENDATIONS: 1. Continue to monitor the patient clinically. Levophed has been weaned off. 2. Stop continuous IV fluids and advance diet. 3. Continue nicotine replacement therapy. 4. Continue appropriate DVT prophylaxis. 5. Recommend crisis/psychiatric evaluation. IMPRESSIONS: 1. Intentional overdose/suicide attempt The patient presented to the hospital following intentional overdose of hydroxyzine of approximately 30 tablets. Poison control was contacted. The patient received supplemental IV fluid hydration and was ultimately admitted to the medical intensive care unit due to persistent hypotension. Continue to monitor QT. The patient, as of this morning, has been weaned off of Levophed. She will require crisis/psychiatric evaluation. 2. Medication induced hypotension Improved with supportive care, including vasopressor support. 3. History of anxiety/depression/tobacco dependency/alcohol dependency Complicates care, management, recovery and prognosis. Continue supportive measures as noted above. This note was generated with InSampleation software. It may contain incorrect words, spelling, and punctuation that were not noted in checking the note before signing. HPI Consult Data Date of Consult: 07/02/25 HPI Narrative Reason for Consultation: Hypotension HPI Narrative: The patient is a 45-year-old female, with a history as outlined below, who presented to the emergency department on July 01, following an intentional overdose of hydroxyzine. The patient reported that she purposefully ingested approximately 30 tablets of her hydroxyzine in an attempt to end her life after her of 10 years reportedly told her that he wanted a divorce on their anniversary. The patient denied any prior history of any suicide attempts. She does report a history of anxiety and depression which is medically managed by her primary care provider. She is a current daily smoker. On presentation to the emergency department, the patient was noted to be afebrile with a presenting blood pressure of 90/49 mmHg. She was maintaining appropriate oxygen saturations on room air. Laboratory evaluation revealed a normal white blood cell count. Chemistry profile was notable for a potassium of 3.2 with a lactate of 2.2. Alcohol level was elevated at 119. Toxicology screen was negative. Chest x-ray was unremarkable. The case was reportedly discussed with poison control. Due to her persistent hypotension, the patient was initiated on Levophed and admitted to the medical intensive care unit for further management. This morning, the patient is clinically stable. She has been weaned from vasopressor support. [facility] Medical History Crohn's disease CKD (chronic kidney disease) Tobacco use ADHD Anxiety and depression GERD (gastroesophageal reflux disease) Retinal arteriolar sclerosis Home Medications ?Medication ?Instructions ?Recorded ?Last Taken ?Type atomoxetine 60 mg capsule 60 mg PO DAILY 07/01/25 Unknown History bupropion HCl 150 mg 24 hr tablet, 150 mg PO DAILY 07/01/25 Unknown History extended release lamotrigine 200 mg tablet 400 mg PO BID seizures 07/01/25 Unknown History pantoprazole 40 mg tablet,delayed 40 mg PO DAILY 07/01/25 Unknown History release bupropion HCl 300 mg 24 hr tablet, 300 mg PO DAILY depression 07/02/25 Unknown History extended release fluoxetine 40 mg capsule 80 mg PO DAILY depression 07/02/25 Unknown History Allergy/AdvReac Type Severity Reaction Status Date / Time latex AdvReac Unknown Verified 07/01/25 20:30 Family History Mother Anxiety and depression Father CVA (cerebral vascular accident) Hypertension Surgical History History of bilateral tubal ligation Hx of appendectomy Social History household members: family Smoking Status: Current every day smoker tobacco type: cigarettes Smoking packs per day: 1 Smoking cigarettes per day: 20.0 alcohol intake: current alcohol intake frequency: holidays/special occasions only substance use type: does not use ROS ROS Narrative 10 systems were reviewed with pertinent positives as noted in the HPI above. Physical Exam Const alert, oriented x3 and no apparent distress HEENT normocephalic, head/scalp atraumatic and moist oral mucous membranes Eyes PERRL, EOMs intact bilaterally and conjunctivae normal Neck supple General: trachea midline Chest inspection of chest normal Resp normal respiratory effort Auscultation: Negative for rales, rhonchi or wheezes Cardio regular rate and regular rhythm GI normal to inspection, nondistended, normoactive bowel sounds Extremity no clubbing, cyanosis or edema Skin no rashes or lesions noted Neuro CN's II-XII intact bilaterally, moves all extremities and no focal motor deficits Psych cooperative and affect normal Lab / Micro Data 07/02/25 03:00 07/02/25 03:00 Labs: Laboratory Results - last 24 hr 07/01/25 20:35: WBC 9.2, RBC 3.35 L, Hgb 10.2 L, Hct 30.0 L, MCV 89.6, MCH 30.4, MCHC 34.0, RDW Std Deviation 46.9 H, RDW Coeff of Ana 14.5, Plt Count 261, MPV 8.8, Immature Gran % (Auto) 0.300, Neut % (Auto) 53.8, Lymph % (Auto) 35.1, [place] % (Auto) 8.1, Eos % (Auto) 2.2, Baso % (Auto) 0.5, Absolute Neuts (auto) 5.0, Absolute Lymphs (auto) 3.24, Nucleated RBC % 0, Sodium 136, Potassium 3.2 L, Chloride 105, Carbon Dioxide 18.2 L, Anion Gap 12, BUN 11, Creatinine 0.85, Estim Creat Clear Calc 75.90, Est GFR (MDRD) Non-Af 87, BUN/Creatinine Ratio 13.3, Glucose 71, Lactic Acid 2.2 H*, Calcium 8.6, Phosphorus 3.3, Magnesium 2.4 H, Total Bilirubin 0.16, AST 25, ALT 20, Alkaline Phosphatase 92, Total Protein 6.4, Albumin 3.9, Globulin 2.5, Albumin/Globulin Ratio 1.6, Serum , Qual NEGATIVE, Ethyl Alcohol 119.0 H, POC Glucose 69 L 07/01/25 20:42: Urine Opiates Screen NEGATIVE, U Buprenorphine Qual NEGATIVE, Ur Oxycodone Screen NEGATIVE, Urine Methadone Screen NEGATIVE, Urine Fentanyl Screen NEGATIVE, Ur Barbiturates Screen NEGATIVE, Ur Phencyclidine Scrn NEGATIVE, Ur Amphetamines Screen NEGATIVE, U Benzodiazepines Scrn NEGATIVE, Urine Cocaine Screen NEGATIVE, U Cannabinoids Screen NEGATIVE 07/01/25 21:57: POC Glucose 89 07/02/25 03:00: WBC 8.5, RBC 2.90 L, Hgb 8.5 L, Hct 25.9 L, MCV 89.3, MCH 29.3, MCHC 32.8, RDW Std Deviation 47.4 H, RDW Coeff of Ana 14.5, Plt Count 201, MPV 8.9, Immature Gran % (Auto) 0.200, Neut % (Auto) 50.9, Lymph % (Auto) 40.5, [place] % (Auto) 5.6, Eos % (Auto) 2.1, Baso % (Auto) 0.7, Absolute Neuts (auto) 4.3, Absolute Lymphs (auto) 3.45, Nucleated RBC % 0, Sodium 136, Potassium 3.8, Chloride 110 H, Carbon Dioxide 18.7 L, Anion Gap 7, BUN 12, Creatinine 0.80, Estim Creat Clear Calc 77.21, Est GFR (MDRD) Non-Af 93, BUN/Creatinine Ratio 15.1, Glucose 91, Lactic Acid < 1.0, Calcium 7.7, Total Bilirubin < 0.15, AST 42 H, ALT 32, Alkaline Phosphatase 77, Total Protein 5.1 L, Albumin 3.3 L, Globulin 1.8 L, Albumin/Globulin Ratio 1.9 Rhythm Strip Rhythm Strip: Sinus Rhythm Rate: 61 Ectopy: None Imaging Radiology Impression Chest X-Ray 07/01/25 20:50 IMPRESSION: No acute cardiopulmonary disease. Reading Location: [id number] Charges/Coding Visit Charges Inpatient E&M: 76773 Init Hosp L2
--- NOTE | 2025-07-02 10:34 | CASEMGMT ---
Social Work Pt admitted with an intentional overdose. Per RN, pt is medically cleared to be seen for psychiatric placement. Phone call to Vilma at [facility] and referral made. Clinical information faxed. Crisis to send a worker to the hospital to assess the pt. SHONNA Gonzalez
--- NOTE | 2025-07-02 13:28 | CASEMGMT ---
Social Work SW spoke with Therese from Crisis. Pt has been assessed and Crisis is working on psychiatric placement. Nursing updated. S SHONNA Goldstein
--- NOTE | 2025-07-02 15:03 | DCINST_ITS ---
Discharge Instructions
--- NOTE | 2025-07-02 15:03 | PCM.DC ---
Discharge Instructions DC O2, CPAP, BIPAP needs Home O2 Discharge instructions: No Dressing / Incision Discharge Activity: Return to Normal Activity Weight Bearing Status: Full weight bearing Follow Up Care Test Results: Test results from this visit will be discussed in further detail at your follow-up appointment, if applicable. Discharge Plan Admission Admit Date/Time: 07/01/25 22:58 Primary Reason for Your Visit: Intentional drug overdose Attending Provider: Erlin Willingham Primary Care Provider: Pattie Hayes Consulting Providers: Belle Wolff; Stephen Toledo; Joe Galvin; Sami Martinez; Pee Lau; Vincenzo Johnson; My Polo; Bob Mccarthy; Kya Moss; Krzysztof Lentz; Joleen Calzada; Valentín Clarke; David Murray; Kia Canales; Power Jaramillo; William Burrell; Jl Santizo; Maryanne Howe; Meaghan Morrison; Michelle Cevallos; Serena Blas; Camille Baker; Erlin Pickard; Eulogio Vega; Jeri Doran; Jamaal Acuña; Alexander Catsano; Eulogio Stover; Angel Foster; Domenic Avila; Gerry Eric; Keisha Howard; German Wan; González Wheeler; Matilde Bolivar; Danyell Silvestre; Camryn Stoner; Pierre,Martha; Aleksey Mcgowan; Vijay,Min; Oneal Cleveland; Tasha Harris; Dewey Sanchez Discharge Orders/Prescriptions Prescriptions: Continued lamotrigine 200 mg tablet 400 mg PO BID atomoxetine 60 mg capsule 60 mg PO DAILY bupropion HCl 150 mg tablet extended release 24 hr 150 mg PO DAILY pantoprazole 40 mg tablet,delayed release (DR/EC) 40 mg PO DAILY bupropion HCl 300 mg tablet extended release 24 hr 300 mg PO DAILY fluoxetine 40 mg capsule 80 mg PO DAILY Referrals / Follow Up: Pattie Hayes DO [Primary Care Provider, Family Practice] Disposition Disposition (needs filled in before D/C Order can be placed): Psychiatric Hospital or Unit
--- NOTE | 2025-07-02 15:05 | PCM.DC.SUM ---
Providers Date of Admission: 07/01/25 Date of Discharge: 07/02/25 Primary Care Physician: Dr. Pattie Hayes, DO Consultations 07/02/25 00:06 Consult: Auto Dealer / Pulmonary Medicine Routine Consulting Provider: Intensivists/Pulmonary Med Reason for Consult: Overdose, suicide attempt, hypotensive EMERGENT Consult: No MD Notified: Yes Date Notified: 07/02/25 Time Notified: 07:43 Method of Notification: Verbal Reason For Visit: OVERDOSE,SUICIDE ATTEMPT Diagnosis Discharge Diagnosis (1) Acute hypotension: Status: Acute Code(s): I95.9 - Hypotension, unspecified (2) Overdose: Status: Acute Code(s): T50.901A - Poisoning by unspecified drugs, medicaments and biological substances, accidental (unintentional), initial encounter Plan 1. Intentional drug overdose/suicide attempt #2 distributive shock secondary to hydroxyzine overdose #3 chronic depression Medications at Discharge Home Medications atomoxetine 60 mg capsule 60 mg PO DAILY 07/01/25 bupropion HCl 150 mg 24 hr tablet, extended release 150 mg PO DAILY 07/01/25 lamotrigine 200 mg tablet 400 mg PO BID seizures 07/01/25 pantoprazole 40 mg tablet,delayed release 40 mg PO DAILY 07/01/25 bupropion HCl 300 mg 24 hr tablet, extended release 300 mg PO DAILY depression 07/02/25 fluoxetine 40 mg capsule 80 mg PO DAILY depression 07/02/25 Hospital Course Operations None Procedures None Summary of Care Provided Minutes Spent on Discharge: 30 Hospital Course: This 45-year-old white female was seen in the emergency room at [facility] after ingesting a large amount of prescribed hydroxyzine, she was noted to have a low blood pressure and was given IV fluids, she intended to commit suicide by taking this medication. Patient was admitted to ICU and IV fluids were continued and she was on pressor agents for a short period of time which were weaned off. Patient was seen by crisis and was pink slipped to a psych facility. On 07/02/2025, patient was seen and examined: On examination she appeared in good health and spirits, she does not appear to be in any distress. Vital signs as documented. Skin warm and dry and without overt rashes. Neck without JVD, thyroid appears normal, trachea is midline, neck is supple. Lungs clear, normal air movement was noted. Heart exam notable for regular rhythm, normal sounds and absence of murmurs, rubs or gallops. Abdomen unremarkable and without evidence of organomegaly, masses, or abdominal aortic enlargement, bowel sounds are present in all 4 quadrants, no abdominal tenderness was noted. Extremities nonedematous, no cyanosis was noted, no clubbing was noted. Neuro: Cranial nerves II through XII are grossly intact, no focal motor deficits were noted, sensation to light touch and pinprick is intact, motor exam 5/5 throughout. Psych: Patient is alert and oriented x3, she does not appear anxious. Patient was discharged from outside psych facility in stable condition on 07/02/2025 Weight / BMI Weight Weight: 54.5 kg Body Mass Index (BMI) 20.5 ABG / Lab / Microbiology Data 07/02/25 03:00 07/02/25 03:00 Laboratory: Laboratory Results - last 24 hr 07/01/25 20:35: WBC 9.2, RBC 3.35 L, Hgb 10.2 L, Hct 30.0 L, MCV 89.6, MCH 30.4, MCHC 34.0, RDW Std Deviation 46.9 H, RDW Coeff of Ana 14.5, Plt Count 261, MPV 8.8, Immature Gran % (Auto) 0.300, Neut % (Auto) 53.8, Lymph % (Auto) 35.1, [place] % (Auto) 8.1, Eos % (Auto) 2.2, Baso % (Auto) 0.5, Absolute Neuts (auto) 5.0, Absolute Lymphs (auto) 3.24, Nucleated RBC % 0, Sodium 136, Potassium 3.2 L, Chloride 105, Carbon Dioxide 18.2 L, Anion Gap 12, BUN 11, Creatinine 0.85, Estim Creat Clear Calc 75.90, Est GFR (MDRD) Non-Af 87, BUN/Creatinine Ratio 13.3, Glucose 71, Lactic Acid 2.2 H*, Calcium 8.6, Phosphorus 3.3, Magnesium 2.4 H, Total Bilirubin 0.16, AST 25, ALT 20, Alkaline Phosphatase 92, Total Protein 6.4, Albumin 3.9, Globulin 2.5, Albumin/Globulin Ratio 1.6, Serum , Qual NEGATIVE, Ethyl Alcohol 119.0 H, POC Glucose 69 L 07/01/25 20:42: Urine Opiates Screen NEGATIVE, U Buprenorphine Qual NEGATIVE, Ur Oxycodone Screen NEGATIVE, Urine Methadone Screen NEGATIVE, Urine Fentanyl Screen NEGATIVE, Ur Barbiturates Screen NEGATIVE, Ur Phencyclidine Scrn NEGATIVE, Ur Amphetamines Screen NEGATIVE, U Benzodiazepines Scrn NEGATIVE, Urine Cocaine Screen NEGATIVE, U Cannabinoids Screen NEGATIVE 07/01/25 21:57: POC Glucose 89 07/02/25 03:00: WBC 8.5, RBC 2.90 L, Hgb 8.5 L, Hct 25.9 L, MCV 89.3, MCH 29.3, MCHC 32.8, RDW Std Deviation 47.4 H, RDW Coeff of Ana 14.5, Plt Count 201, MPV 8.9, Immature Gran % (Auto) 0.200, Neut % (Auto) 50.9, Lymph % (Auto) 40.5, [place] % (Auto) 5.6, Eos % (Auto) 2.1, Baso % (Auto) 0.7, Absolute Neuts (auto) 4.3, Absolute Lymphs (auto) 3.45, Nucleated RBC % 0, Sodium 136, Potassium 3.8, Chloride 110 H, Carbon Dioxide 18.7 L, Anion Gap 7, BUN 12, Creatinine 0.80, Estim Creat Clear Calc 77.21, Est GFR (MDRD) Non-Af 93, BUN/Creatinine Ratio 15.1, Glucose 91, Lactic Acid < 1.0, Calcium 7.7, Total Bilirubin < 0.15, AST 42 H, ALT 32, Alkaline Phosphatase 77, Total Protein 5.1 L, Albumin 3.3 L, Globulin 1.8 L, Albumin/Globulin Ratio 1.9 Radiography Diagnostic Testing: Radiology Impression Chest X-Ray 07/01/25 20:50 IMPRESSION: No acute cardiopulmonary disease. Reading Location: [id number] D/C Instructions Weight Bearing Status: Full weight bearing DC O2, CPAP, BIPAP Needs Home O2 Discharge instructions: No Meaningful Use Info Meaningful Use Meaningful Use Diagnoses (Choose all that apply): None applicable Discharge Plan Admission Admit Date/Time: 07/01/25 22:58 Primary Reason for Your Visit: Intentional drug overdose Attending Provider: Erlin Willingham Primary Care Provider: Jay,Pattie A Consulting Providers: Belle Wolff; Stephen Toledo; Joe Galvin; Sami Martinez; Pee Lau; Vincenzo Johnson; My Polo; Bob Mccarthy; Kya Msos; Krzysztof Lentz; Joleen Calzada; Valentín Clarke; David Murray; Kia Canales; Power Jaramillo; William Burrell; Jl Santizo; Maryanne Howe; Meaghan Morrison; Michelle Cevallos; Serena Blas; Camille Baker; Erlin Pickard; Eulogio Vega; Jeri Doran; Jamaal Acuña; Alexander Castano; Eulogio Stover; Angel Foster; Domenic Avila; Gerry Eric; Keisha Howard; German Wan; González Wheeler; Matilde Bolivar; Danyell Silvestre; Camryn Stoner; Martha Jay; Aleksey Mcgowan; Min Linares; Oneal [place]; Tasha Harris; Dewey Sanchez Discharge Orders/Prescriptions Prescriptions: Continued lamotrigine 200 mg tablet 400 mg PO BID atomoxetine 60 mg capsule 60 mg PO DAILY bupropion HCl 150 mg tablet extended release 24 hr 150 mg PO DAILY pantoprazole 40 mg tablet,delayed release (DR/EC) 40 mg PO DAILY bupropion HCl 300 mg tablet extended release 24 hr 300 mg PO DAILY fluoxetine 40 mg capsule 80 mg PO DAILY Referrals / Follow Up: Pattie Hayes DO [Primary Care Provider, Family Practice] Disposition Disposition (needs filled in before D/C Order can be placed): Psychiatric Hospital or Unit Charges/Coding Visit Charges Inpatient E&M: 72083 Disch Hosp
--- NOTE | 2025-07-02 15:19 | CASEMGMT ---
Social Work SW spoke with Fernando from Crisis and pt has been accepted at [facility] in [place]. Phone call to [place] ([phone]) who confirms pt can be admitted at any time. Physician notified and plans to discharge pt. SW updated RN with name and number of the accepting facility. Nurse to call with nurse to nurse report and with ETA. SW attempted to notify pt of discharge plan. Pt sleeping. RN sitting with pt states she will update pt with information. SHONNA Gonzalez
--- NOTE | 2025-07-02 20:36 | NURSING ---
2034 Called [facility] to get an updated ETA on arrival of transport. Spoke with adria and he said they outsourced the call to [facility] and they should be arriving at 0100a 07/03/25.
--- NOTE | 2025-07-02 20:56 | NURSING ---
2054 patient leaves with [facility] transoport via cot to go to [facility]. Notified recieving facility of estimated time of arrival of 2214. Spoke to Jessica at [facility].
--- NOTE | 2025-07-02 20:59 | NURSING ---
2044 [facility] arrives at unit to transport patient. Transport provided with report, transfer packet which includes: copy of chart, transport form, demographics sheet, and pink slip. Patient has copious amounts of belongings. 4 bags of belongings and a large blanket were sent along with patient. patient IVs are D/C and bandaged. patient ambulates to cot.
== END 2025-07-02 21:00 | DRG 918 ==
LOC: ED 20:57 → ICU 23:47
PROVIDERS: Admitting Provider Family Medicine; Emergency Provider Emergency Medicine; PCP Family Medicine; Visit Provider Internal Medicine
DX: T43.592A Poisoning by other antipsychotics and neuroleptics, intentional self-harm, initial encounter (principal); E87.20 Acidosis, unspecified; N18.9 Chronic kidney disease, unspecified; F32.A Depression, unspecified; E87.6 Hypokalemia; F17.210 Nicotine dependence, cigarettes, uncomplicated; F41.9 Anxiety disorder, unspecified; K21.9 Gastro-esophageal reflux disease without esophagitis; F90.9 Attention-deficit hyperactivity disorder, unspecified type; Z81.8 Family history of other mental and behavioral disorders; Z79.899 Other long term (current) drug therapy
CPT/HCPCS: 71045; 80053; 80307; 82077; 82962; 83605; 83735; 84100; 84703; 85025; 93005; 99285; A4216